=== PATIENT | male | born 1955 | race Two or more races ===

== ENCOUNTER 2017-09-05 10:02 | Emergency (ER) | payer OTHER ==
[~2017-09-05] VITALS: Ht 170.2 cm; Wt 85.7 kg
--- NOTE | 2017-09-05 10:05 | NUR ---
BBPA FROM [facility] NOT DONE C/O N/V X2 COFFEE GROUND EMESIS TODAY, ALSO C/O ABD PAIN GTUBE SITE. SENT BY DR MIKE CATHETER MALFUNCTION. , NAD NOTED, VSS, RESP EVEN AND UNLABORED, WAITING FOR MD GORDON.
[2017-09-05] MEDS ORDERED: ONDANSETRON HCL/PF 4 MG/2 ML VIAL ONE (10:24)
[2017-09-05] MEDS ORDERED: ONDANSETRON HCL/PF 4 MG/2 ML VIAL IVP ONE (10:30)
[2017-09-05 10:37] LABS: BASOPHILS # (AUTO) 0.1 /CMM (0.0-0.2); BASOPHILS % (AUTO) 0.8 % (0.0-2.0); EOSINOPHILS # (AUTO) 0.2 /CMM (0.0-0.7); EOSINOPHILS % (AUTO) 1.1 % (0.0-6.0); HEMATOCRIT 42 % (39-51); HEMOGLOBIN 13.4 g/dL (13.5-17.5); LYMPHOCYTES # (AUTO) 3.7 /CMM (0.8-4.8); LYMPHOCYTES % (AUTO) 25.7 % (20.0-44.0); MEAN CORPUSCULAR HEMOGLOBIN 26 PG (26.0-33.0); MEAN CORPUSCULAR HGB CONC 32 g/dl (31.0-36.0); MEAN CORPUSCULAR VOLUME 81 fL (80-96); MONOCYTES # (AUTO) 0.9 /CMM (0.1-1.30); MONOCYTES % (AUTO) 6.3 % (2.0-12.0); NEUTROPHILS # (AUTO) 9.3 /CMM (1.8-8.9); NEUTROPHILS % (AUTO) 66.1 % (43.0-81.0); PLATELET COUNT (AUTO) 425 /CMM (150-450); RDW COEFFICIENT OF VARIATION 17.2 (11.5-15.0); RED BLOOD CELL COUNT(AUTO) 5.18 MIL/uL (4.5-6.0); WHITE BLOOD COUNT (AUTO) 14.2 K/uL (4.3-11.0)
[2017-09-05 10:47] LABS: CALCIUM, SERUM 10.1 mg/dL (8.5-10.1); CREATININE 4.8 mg/dL (0.6-1.3); POTASSIUM 4.2 mmol/L (3.5-5.1)
[2017-09-05 10:57] LABS: ALBUMIN 3.4 g/dL (3.4-5.0); BILIRUBIN,DIRECT 0.1 mg/dL (0.0-0.2); BILIRUBIN,TOTAL 0.3 mg/dL (0.2-1.0); TOTAL PROTEIN, SERUM 9.4 g/dL (6.4-8.2)
--- NOTE | 2017-09-05 11:59 | NUR ---
PAGED [facility] --- PSYCHIATRIC MENTAL HEALTH NURSE IS DR GUNDERSON.
--- NOTE | 2017-09-05 12:18 | NUR ---
CALLED 'S OFFICE, [facility], PAGED.
--- NOTE | 2017-09-05 12:49 | NUR ---
CALLED [facility] FOR TRANSPORT BACK TO [facility], ETA 30 MIN, TRIP #[id number].
[2017-09-05 14:04] VITALS: BP 139/77
--- NOTE | 2017-09-05 14:06 | NUR ---
Patient discharged to SNF in stable condition. Written and verbal after care instructions given. Patient verbalizes understanding of instruction. IV removed. Catheter intact and site benign. Pressure and 4x4 applied to site. No bleeding noted.
== END 2017-09-05 14:08 | disposition home or self-care (01) ==
LOC: ER 10:04
DX: R11.2 Nausea with vomiting, unspecified (principal); E11.22 Type 2 diabetes mellitus with diabetic chronic kidney disease; I12.0 Hypertensive chronic kidney disease with stage 5 chronic kidney disease or end stage renal disease; N18.6 End stage renal disease; Z93.1 Gastrostomy status; Z99.2 Dependence on renal dialysis
CPT/HCPCS: 36415; 80048; 80076; 83690; 85025; 85240; 86850; 86880; 87081; 93005; 96374; 99285; A4606; J2405; Z7610

== ENCOUNTER 2017-12-24 13:53 | Emergency (ER) | payer OTHER ==
[~2017-12-24] VITALS: Ht 165.1 cm; Wt 74.8 kg
[2017-12-24] MEDS ORDERED: MORPHINE SULFATE INJ 2 MG/ML DISP.SYRIN IM ONE (14:30)
[2017-12-24] MEDS ORDERED: ONDANSETRON 4 MG TAB.RAPDIS SL ONE (14:30)
[2017-12-24] MEDS ORDERED: ONDANSETRON 4 MG TAB.RAPDIS ONE (14:35)
[2017-12-24] MEDS ORDERED: MORPHINE SULFATE INJ 4 MG/ML DISP.SYRIN ONE (14:35)
[2017-12-24] MEDS ORDERED: CARVEDILOL 6.25 MG TABLET ONE (18:22)
[2017-12-24] MEDS ORDERED: CARVEDILOL 6.25 MG TABLET PO ONE (18:30)
[2017-12-24 18:45] VITALS: BP 162/90
[2017-12-24 18:56] LABS: APPEARANCE,URINE Clear (CLEAR); BILIRUBIN,URINE Negative (NEGATIVE); BLOOD, URINE Trace-intact Ery/uL (NEGATIVE); COLOR,URINE Yellow (YELLOW); KETONES,URINE Negative (NEGATIVE); LEUKOCYTE ESTERASE ,URINE Trace (NEGATIVE); NITRITE, URINE Negative (NEGATIVE); PH,URINE 5.5 (5.0-8.0); PROTEIN,URINE >=300 mg/dl (NEGATIVE); UGLUCOSE Negative (NEGATIVE); UROBILINOGEN,URINE 0.2 EU/dL (0.2)
[2017-12-24 19:22] LABS: BACTERIA,URINE Few /HPF (None Seen); MUCUS,URINE Few /LPF (None Seen); RBC,URINE 0-2 /HPF (0-2); SQUAMOUS EPITHELIAL CELL,UR Rare /HPF (None Seen); URINE AMORPHOUS URATE Moderate /HPF (None Seen); WBC,URINE 21-50 /HPF (0-3)
== END 2017-12-24 18:47 | disposition home or self-care (01) ==
LOC: ER 13:54
DX: M54.41 Lumbago with sciatica, right side (principal); M54.42 Lumbago with sciatica, left side; E11.22 Type 2 diabetes mellitus with diabetic chronic kidney disease; I12.0 Hypertensive chronic kidney disease with stage 5 chronic kidney disease or end stage renal disease; N18.6 End stage renal disease; Z99.2 Dependence on renal dialysis; E78.5 Hyperlipidemia, unspecified; Z88.8 Allergy status to other drugs, medicaments and biological substances
CPT/HCPCS: 81001; 87086; 96372; 99284; A4606; J2270; Q0162; Z7610; 81000-TC

== ENCOUNTER 2018-02-01 09:40 | Emergency (ER) | payer MEDICAID, OTHER ==
[~2018-02-01] VITALS: Ht 170.2 cm; Wt 75.3 kg
[~2018-02-01 09:40] MED LIST: ACET650S26 PO; ASPI-1169 PO; ATOR40TA PO; BLOO-668 IN; CARV6.252 PO; DOCU-141 PO; EPOE1VIA6 SQ; FOLI0.8T23 PO; HYDR-552 PO; INSU100V27 SQ; INSU100V7 SQ; LACT10SO PO; MAG30ORA PO; NITR0.4T48 SL; OMEP40CA37 PO; POLY15DR40 EACHEYE; TRAM50TA2 PO
--- NOTE | 2018-02-01 09:45 | NUR ---
PT [facility] TO ER BED 03. PT STARTED VOMITING "COFFEE GROUND" 2 HOURS ON DIALYSIS. PT ALSO C/O LOWER BACK PAIN. CHRONIC. PLACED ON MONITOR. VSS. AWAITING MD GORDON.
--- NOTE | 2018-02-01 09:50 | NUR ---
DR ROWLAND AT BEDSIDE FOR EVAL.
[2018-02-01] MEDS ORDERED: ONDANSETRON HCL/PF 4 MG/2 ML VIAL ONE (09:58)
[2018-02-01] MEDS ORDERED: PANTOPRAZOLE 40 MG VIAL ONE (09:58)
[2018-02-01] MEDS ORDERED: MORPHINE SULFATE INJ 4 MG/ML DISP.SYRIN ONE (09:58)
[2018-02-01] MEDS ORDERED: PANTOPRAZOLE 40 MG VIAL IV ONE (10:00)
[2018-02-01] MEDS ORDERED: MORPHINE SULFATE INJ 2 MG/ML DISP.SYRIN IV ONE (10:00)
[2018-02-01] MEDS ORDERED: ONDANSETRON HCL/PF 4 MG/2 ML VIAL IVP ONE (10:00)
--- NOTE | 2018-02-01 10:00 | NUR ---
IV LINE STARTED. BLOOD DRAWN AND SENT TO LAB.
[2018-02-01] MEDS ORDERED: AMLO5TAB2 PO (10:02)
[2018-02-01] MEDS ORDERED: MORP10SO PO (10:02)
[2018-02-01] MEDS ORDERED: BENA20TA9 PO (10:02)
[2018-02-01] MEDS ORDERED: BISA-79 PO (10:02)
[2018-02-01] MEDS ORDERED: CLON0.1T PO (10:02)
[2018-02-01] MEDS ORDERED: BISA10SU8 RC (10:02)
[2018-02-01] MEDS ORDERED: IPRA3AMP23 IH (10:02)
[2018-02-01 10:04] LABS: BASOPHILS # (AUTO) 0.1 /CMM (0.0-0.2); LYMPHOCYTES # (AUTO) 1.9 /CMM (0.8-4.8); MONOCYTES # (AUTO) 0.9 /CMM (0.1-1.30)
[2018-02-01 10:06] LABS: BASOPHILS % (AUTO) 0.8 % (0.0-2.0); EOSINOPHILS % (AUTO) 2.2 % (0.0-6.0); HEMATOCRIT 44 % (39-51); HEMOGLOBIN 13.7 g/dL (13.5-17.5); LYMPHOCYTES % (AUTO) 14.6 % (20.0-44.0); MEAN CORPUSCULAR HEMOGLOBIN 22 PG (26.0-33.0); MEAN CORPUSCULAR HGB CONC 31 g/dl (31.0-36.0); MEAN CORPUSCULAR VOLUME 73 fL (80-96); MONOCYTES % (AUTO) 7.2 % (2.0-12.0); NEUTROPHILS # (AUTO) 9.7 /CMM (1.8-8.9); NEUTROPHILS % (AUTO) 75.2 % (43.0-81.0); PLATELET COUNT (AUTO) 636 /CMM (150-450); RDW COEFFICIENT OF VARIATION 21.5 (11.5-15.0); WHITE BLOOD COUNT (AUTO) 12.9 K/uL (4.3-11.0)
[2018-02-01 10:13] LABS: CALCIUM, SERUM 9.3 mg/dL (8.5-10.1); CREATININE 3.5 mg/dL (0.6-1.3); POTASSIUM 3.9 mmol/L (3.5-5.1)
[2018-02-01 10:19] LABS: BILIRUBIN,DIRECT 0.1 mg/dL (0.0-0.2); BILIRUBIN,TOTAL 0.4 mg/dL (0.2-1.0); TOTAL PROTEIN, SERUM 8.6 g/dL (6.4-8.2)
--- NOTE | 2018-02-01 10:47 | NUR ---
PATIENT WENT OUT FOR CT WITH BACK SEWER
--- NOTE | 2018-02-01 11:59 | NUR ---
CALLED [facility] UNDERGROUND MINE MACHINERY MECHANIC WAS PAGED.
--- NOTE | 2018-02-01 12:19 | NUR ---
CALLED [facility] FOR TRANSPORT ETA OF 1300 WAS GIVEN. TRIP#[id number]
--- NOTE | 2018-02-01 13:20 | NUR ---
IV removed. Catheter intact and site benign. Pressure and 4x4 applied to site. No bleeding noted.
--- NOTE | 2018-02-01 13:20 | NUR ---
PT PICKED UP BY [facility] STAFF. REPORT GIVEN BY NIESHA WHITFIELD.
[2018-02-01 13:36] VITALS: BP 130/71
== END 2018-02-01 13:37 | disposition home or self-care (01) ==
LOC: ER 09:43
DX: R11.2 Nausea with vomiting, unspecified (principal); I12.0 Hypertensive chronic kidney disease with stage 5 chronic kidney disease or end stage renal disease; E11.22 Type 2 diabetes mellitus with diabetic chronic kidney disease; N18.6 End stage renal disease; M54.9 Dorsalgia, unspecified; G89.29 Other chronic pain; Z99.2 Dependence on renal dialysis; Z79.4 Long term (current) use of insulin; Z79.82 Long term (current) use of aspirin; E78.5 Hyperlipidemia, unspecified; Z86.73 Personal history of transient ischemic attack (TIA), and cerebral infarction without residual deficits; Z88.8 Allergy status to other drugs, medicaments and biological substances
CPT/HCPCS: 36415; 71045; 74176; 80048; 80076; 83690; 85025; 85730; 93005; 96374; 96375; 99285; A4606; C9113; J2270; J2405; Z7610

== ENCOUNTER 2018-07-05 10:13 | Emergency (ER) | payer MEDICAID ==
[~2018-07-05] VITALS: Ht 170.2 cm; Wt 88.9 kg
[~2018-07-05 10:13] MED LIST changes: +AMLO5TAB9 PO; +BENA20TA9 PO; +BISA-79 PO; +BISA10SU8 RC; -CARV6.252 PO; +CLON0.1T PO; -DOCU-141 PO; -FOLI0.8T23 PO; +HYDR-4384 PO; -HYDR-552 PO; +IPRA3AMP23 IH; -LACT10SO PO; -MAG30ORA PO; +MORP10SO PO; -NITR0.4T48 SL; -OMEP40CA37 PO; -POLY15DR40 EACHEYE; -TRAM50TA2 PO
--- NOTE | 2018-07-05 10:13 | NUR ---
TIMBO FROM [facility] FOR R CHEST VICKIE CATHETER MALFUNCTION, DIALYZED FOR 1.5HRS OUT OF 2.5 HRS. TO ER BED 10, CHANGED TO GOWN, HOOKED TO MONITOR, AWAITING MD GORDON
[2018-07-05 10:54] LABS: BASOPHILS # (AUTO) 0.1 /CMM (0.0-0.2); BASOPHILS % (AUTO) 1.2 % (0.0-2.0); EOSINOPHILS % (AUTO) 3.7 % (0.0-6.0); HEMATOCRIT 45 % (39-51); HEMOGLOBIN 14.5 g/dL (13.5-17.5); LYMPHOCYTES % (AUTO) 31.6 % (20.0-44.0); MEAN CORPUSCULAR HGB CONC 32 g/dl (31.0-36.0); MEAN CORPUSCULAR VOLUME 84 fL (80-96); MONOCYTES % (AUTO) 10.6 % (2.0-12.0); NEUTROPHILS % (AUTO) 52.9 % (43.0-81.0); PLATELET COUNT (AUTO) 354 /CMM (150-450); RED BLOOD CELL COUNT(AUTO) 5.33 MIL/uL (4.5-6.0); WHITE BLOOD COUNT (AUTO) 9.5 K/uL (4.3-11.0)
[2018-07-05 11:00] LABS: CALCIUM, SERUM 8.6 mg/dL (8.5-10.1); CARBON DIOXIDE 25 mmol/L (21-32); CHLORIDE 105 mmol/L (98-107); CREATININE 2.6 mg/dL (0.6-1.3); GLUCOSE 101 mg/dL (74-106); POTASSIUM 4.9 mmol/L (3.5-5.1); SODIUM SERUM 139 mmol/L (136-145); UREA NITROGEN, BLOOD 70 mg/dL (7-18)
[2018-07-05] MEDS ORDERED: ALTEPLASE CATHFLO 2 MG/VIAL XX ONE (12:00)
--- NOTE | 2018-07-05 12:06 | NUR ---
PERFORMED ASEPTIC TECHNIQUE: FLUSHED 2 LUMENS OF R CHEST VICKIE CATHETER WITH 10ML OF NS EACH PORT. PATENT AND NO RESISTANCE NOTED, ER MD MADE AWARE. SITE IS INTACT AND NO S/Sx OF INFECTION NOTED.
--- NOTE | 2018-07-05 12:47 | NUR ---
PAGED DR. MIKE ITS NOW DR. WORTHY
[2018-07-05] MEDS ORDERED: HEPARIN SODIUM, PORCINE 5000 UNITS/1 ML VIAL IV ONE (13:00)
[2018-07-05] MEDS ORDERED: HEPARIN SODIUM, PORCINE 5000 UNITS/1 ML VIAL ONE (13:00)
--- NOTE | 2018-07-05 13:38 | NUR ---
ASPIRATED 1.6ML OF THE HEPARIN ON EACH LUMEN ON R CHEST VICKIE CATH.
--- NOTE | 2018-07-05 14:29 | NUR ---
PATIENT SENT HOME VIA AMBULANCE.
--- NOTE | 2018-07-05 14:29 | NUR ---
IV removed. Catheter intact and site benign. Pressure and 4x4 applied to site. No bleeding noted.Patient discharged to home in stable condition. Written and verbal after care instructions given. Patient verbalizes understanding of instruction.
[2018-07-05 14:30] VITALS: BP 159/91
== END 2018-07-05 14:31 | disposition home or self-care (01) ==
LOC: ER 10:15
DX: T82.41XA Breakdown (mechanical) of vascular dialysis catheter, initial encounter (principal); I12.0 Hypertensive chronic kidney disease with stage 5 chronic kidney disease or end stage renal disease; E11.22 Type 2 diabetes mellitus with diabetic chronic kidney disease; D63.1 Anemia in chronic kidney disease; N18.6 End stage renal disease; E78.5 Hyperlipidemia, unspecified; Z99.2 Dependence on renal dialysis; Z88.8 Allergy status to other drugs, medicaments and biological substances; Z86.73 Personal history of transient ischemic attack (TIA), and cerebral infarction without residual deficits; Z79.4 Long term (current) use of insulin; Z79.899 Other long term (current) drug therapy; Z79.82 Long term (current) use of aspirin
CPT/HCPCS: 36415; 71045; 80048; 84484; 85025; 85730; 93005; 96374; 99284; A4606; J1644; Z7610; J2997

== ENCOUNTER 2018-11-29 07:51 | Inpatient (IN) | payer MEDICAID ==
[~2018-11-29] VITALS: Ht 170.2 cm; Wt 95.3 kg
--- NOTE | 2018-11-29 07:51 | NUR ---
PT BIB [facility] FROM [facility]IS CENTER, SYNCOPAL EPISODE WHILE ON DIALYSIS, PT IS AAOX4, NOT IN RESPIRATORY DISTRESS, HOOKED TO MONITOR, V/S STABLE, KEPT RESTED AND COMFORTABLE, WILL CONTINUE TO MONITOR.
--- NOTE | 2018-11-29 08:00 | NUR ---
SEEN AND EXAMINED BY DR. FLORES.
--- NOTE | 2018-11-29 08:02 | NUR ---
PT IV LINE ESTABLISHED, BLOOD DRAWNED AND SENT TO LAB.
--- NOTE | 2018-11-29 08:08 | NUR ---
POTATO GRADER AT BEDSIDE FOR XRAY.
[2018-11-29 08:17] LABS: BASOPHILS # (AUTO) 0.1 /CMM (0.0-0.2); BASOPHILS % (AUTO) 0.5 % (0.0-2.0); EOSINOPHILS % (AUTO) 4.8 % (0.0-6.0); HEMATOCRIT 40 % (39-51); HEMOGLOBIN 12.5 g/dL (13.5-17.5); LYMPHOCYTES # (AUTO) 4.2 /CMM (0.8-4.8); LYMPHOCYTES % (AUTO) 33.9 % (20.0-44.0); MEAN CORPUSCULAR HGB CONC 31 g/dl (31.0-36.0); MEAN CORPUSCULAR VOLUME 85 fL (80-96); MONOCYTES # (AUTO) 1.2 /CMM (0.1-1.30); MONOCYTES % (AUTO) 9.4 % (2.0-12.0); NEUTROPHILS # (AUTO) 6.3 /CMM (1.8-8.9); NEUTROPHILS % (AUTO) 51.4 % (43.0-81.0); PLATELET COUNT (AUTO) 378 /CMM (150-450); RED BLOOD CELL COUNT(AUTO) 4.73 MIL/uL (4.5-6.0); WHITE BLOOD COUNT (AUTO) 12.3 K/uL (4.3-11.0)
[2018-11-29 08:19] LABS: CALCIUM, SERUM 7.7 mg/dL (8.5-10.1); CARBON DIOXIDE 22 mmol/L (21-32); CHLORIDE 97 mmol/L (98-107); CREATININE 3.9 mg/dL (0.6-1.3); GLUCOSE 127 mg/dL (74-106); SODIUM SERUM 131 mmol/L (136-145); UREA NITROGEN, BLOOD 52 mg/dL (7-18)
[2018-11-29 08:25] LABS: ALANINE AMINOTRANSFERASE 29 U/L (12-78); ALBUMIN 3.3 g/dL (3.4-5.0); ALKALINE PHOSPHATASE 82 U/L (46-116); ASPARTATE AMINOTRANSFERASE 18 U/L (15-37); BILIRUBIN,TOTAL 0.2 mg/dL (0.2-1.0); TOTAL PROTEIN, SERUM 8.2 g/dL (6.4-8.2)
[2018-11-29] MEDS ORDERED: ONDANSETRON HCL/PF 4 MG/2 ML VIAL ONE (08:34)
--- NOTE | 2018-11-29 08:40 | NUR ---
PT IS BACK FROM THE [facility]SCAN, PT IS VOMITING MD AWARE.
--- NOTE | 2018-11-29 08:47 | NUR ---
BED 322-1
--- NOTE | 2018-11-29 08:56 | NUR ---
REPORT GIVEN TO NAHID ALCAZAR FOR AM[facility].
[2018-11-29] MEDS ORDERED: ONDANSETRON HCL/PF 4 MG/2 ML VIAL IV ONE (09:00)
--- NOTE | 2018-11-29 09:12 | NUR ---
DR. LOMELI AT BEDSIDE FOR EVAL.
--- NOTE | 2018-11-29 09:14 | NUR ---
DR KIRK PAGED AGAIN
--- NOTE | 2018-11-29 10:04 | NUR ---
DR HERRING PAGED AGAIN THRU OFFICE
[2018-11-29 10:22] LABS: THYROID STIMULATING HORMONE 2.493 uIU/mL (0.358-3.74)
[2018-11-29 11:30] VITALS: BP 153/73
--- NOTE | 2018-11-29 11:30 | NUR ---
SALVAGE ENGINEERTAG STRINGER NOTES Received Patient via gurney. Patient in bed comfortable and resting. A/O x 4, Chilean speaking with few Divehi. VS stable with no acute distress. Breathing even and unlabored on room air with no respiratory distress, SPO2 97%. Denies pain. Denies nausea. Skin assessment pictures done and placed in chart. Telemonitor in place and operational reading, SR, HR-75. 18g PIV on LAC, clean, dry, intact, and flushing well. Safety precautions in place. Bed locked and set to lowest position with side rails x 2 up. All needs rendered at this time. Will continue to monitor.
[2018-11-29] MEDS ORDERED: BISACODYL SUPP (10 MG) 10 MG/SUPP.RECT SUPP.RECT RC PRN (15:00)
[2018-11-29] MEDS ORDERED: CLONIDINE HCL 0.1 MG TABLET PO PRN (15:00)
[2018-11-29] MEDS ORDERED: IPRATROPIUM NEB FS 0.5 MG/2.5 ML AMPUL.NEB NEB PRN (15:00)
[2018-11-29 15:55] VITALS: BP 143/73
[2018-11-29] MEDS: ACETAMINOPHEN 325 MG TABLET PO PRN (16:39)
[2018-11-29] MEDS: BLOOD SUGAR DIAGNOSTIC 1 EACH STRIP IN SCH ×2 (17:44→22:53)
--- NOTE | 2018-11-29 19:10 | NUR ---
SHIP SELF DEFENSE SYSTEM MK1 OPERATOR CLOSING NOTES Patient asleep and resting in bed. A/O x 4, Belarusian speaking with few Tamazight. VS stable with no acute distress. Breathing even and unlabored on room air with no respiratory distress. No signs and symptoms of pain. Telemonitor in place and operational reading, SR, HR-80s. 18g PIV on LAC, clean, dry, intact, and flushing well. Safety precautions in place. Bed locked and set to lowest position with side rails x 2 up. All needs rendered at this time. Will endorse plan of care to oncoming shift.
--- NOTE | 2018-11-29 19:30 | NUR ---
CHANGE OF SHIFT REPORT Received patient in bed, awake, A/O x 4 Sri Lankan speaking, understand and speak some Irish. Isidro Leno at bedside, assist with translation. Patient is scheduled for Dialysis tomorrow, patent consented procedure, consent signed and place in the chart. Right upper chest HD cath dressing C/D/I denies pain, no tyron nausea, no vomiting. Instruction to use call light for assistance, verbalized understanding.
[2018-11-29 20:00] VITALS: BP 128/69
[2018-11-29 22:00] VITALS: BP 128/69
[2018-11-29] MEDS: ATORVASTATIN 40 MG TABLET PO SCH (22:51)
[2018-11-29] MEDS: INSULIN GLARGINE, 100 UNIT/ML CARTRIDGE SQ SCH (22:56)
[2018-11-30] VITALS: BP 144/73
[2018-11-30] MEDS: ACETAMINOPHEN 325 MG TABLET PO PRN ×2 (03:16→22:31)
--- NOTE | 2018-11-30 03:18 | NUR ---
HEADACHE Patient ambulates to the bathroom, did not use call light for assistance. RN reports patient in the bathroom c/o dizziness after getting up from toilet seat. Assisted patient patient back to bed, made comfortable. Appears weak, c/o headache. BP 145/64. Reminders to use call light for assistance, verbalized understanding. Maintained safety.
[2018-11-30 04:00] VITALS: BP 125/69
[2018-11-30 04:05] VITALS: BP 125/69
[2018-11-30] MEDS: BLOOD SUGAR DIAGNOSTIC 1 EACH STRIP IN SCH ×4 (06:00→22:11)
--- NOTE | 2018-11-30 06:04 | NUR ---
END OF SHIFT REPORT Patient in bed, stable oxygen saturation on RA. Sinus rhythm with BBB in the Tele monitor, denies chest pain. Ambulates to the bathroom with FWW, standby assist. Given PRN Tylenol for headache with relief, denies nausea no vomiting. Slept well. FSBS 92 mg/dl with no ISS. Dialysis treatment today as scheduled, patient consented procedure. RFA lesion, no fluid discharge, for wound consult. Will endorse to oncoming RN for continuity of care.
[2018-11-30 07:36] LABS: BASOPHILS # (AUTO) 0.1 /CMM (0.0-0.2); BASOPHILS % (AUTO) 0.6 % (0.0-2.0); EOSINOPHILS % (AUTO) 1.3 % (0.0-6.0); HEMATOCRIT 37 % (39-51); HEMOGLOBIN 11.8 g/dL (13.5-17.5); LYMPHOCYTES # (AUTO) 2.1 /CMM (0.8-4.8); MEAN CORPUSCULAR HGB CONC 32 g/dl (31.0-36.0); MEAN CORPUSCULAR VOLUME 83 fL (80-96); MONOCYTES # (AUTO) 1.6 /CMM (0.1-1.30); MONOCYTES % (AUTO) 9.9 % (2.0-12.0); NEUTROPHILS # (AUTO) 11.8 /CMM (1.8-8.9); NEUTROPHILS % (AUTO) 75.2 % (43.0-81.0); PLATELET COUNT (AUTO) 354 /CMM (150-450); RED BLOOD CELL COUNT(AUTO) 4.46 MIL/uL (4.5-6.0); WHITE BLOOD COUNT (AUTO) 15.7 K/uL (4.3-11.0)
--- NOTE | 2018-11-30 07:39 | NUR ---
SENIOR FOREMAN OPENING NOTES Received Patient awake and resting in bed. Dialysis nurse at bedside. A/O x 4. VS stable with no acute distress. Breathing even and unlabored on room air with no respiratory distress. Denies pain. Telemonitor in place and operational reading, SR with BVB, HR-80s. 18g PIV on LAC, clean, dry, intact, and flushing well. Safety precautions in place. Bed locked and set to lowest position with side rails x 2 up. All needs rendered at this time. Will continue to monitor.
[2018-11-30 08:00] VITALS: BP 103/59
[2018-11-30 08:03] LABS: ALANINE AMINOTRANSFERASE 24 U/L (12-78); ALKALINE PHOSPHATASE 81 U/L (46-116); ASPARTATE AMINOTRANSFERASE 15 U/L (15-37); BILIRUBIN,TOTAL 0.2 mg/dL (0.2-1.0); CALCIUM, SERUM 7.6 mg/dL (8.5-10.1); CARBON DIOXIDE 23 mmol/L (21-32); CHLORIDE 101 mmol/L (98-107); CREATININE 4.3 mg/dL (0.6-1.3); GLUCOSE 89 mg/dL (74-106); MAGNESIUM 2.2 mg/dL (1.8-2.4); PHOSPHORUS 4.4 mg/dL (2.5-4.9); SODIUM SERUM 135 mmol/L (136-145); TOTAL PROTEIN, SERUM 7.7 g/dL (6.4-8.2); UREA NITROGEN, BLOOD 51 mg/dL (7-18)
[2018-11-30 08:21] LABS: POTASSIUM 7.1 mmol/L (3.5-5.1)
[2018-11-30] MEDS ORDERED: LEVOFLOXACIN 500 MG /D5W 100ML 500 MG in PREMIX 1 EA IV SCH (08:30)
[2018-11-30] MEDS: AMLODIPINE BESYLATE 5 MG TABLET PO SCH (10:00)
[2018-11-30] MEDS: BISACODYL (5 MG) 5 MG TABLET.DR PO SCH (10:00)
[2018-11-30] MEDS: BENAZEPRIL HCL 20 MG TABLET PO SCH (10:00)
[2018-11-30] MEDS: ASPIRIN 81 MG TAB.CHEW PO SCH (10:00)
[2018-11-30 16:19] VITALS: BP 137/75
--- NOTE | 2018-11-30 18:56 | NUR ---
PRECISION LENS GENERATOR CLOSING NOTES Patient sitting on chair watching TV. A/O x 4. VS stable with no acute distress. Breathing even and unlabored on room air with no respiratory distress. Denies pain. Telemonitor in place and operational reading, SR with BBB, HR-83. 18g PIV on LAC, clean, dry, intact, and flushing well. Safety precautions in place. Bed locked and set to lowest position with side rails x 2 up. All needs rendered at this time. Will endorse plan of care to oncoming shift.
--- NOTE | 2018-11-30 19:15 | NUR ---
MANAGER OPERATIONAL NOTES RECEIVED PT IN BED AWAKE AND ABLE TO MAKE NEEDS KNOWN. PT A/O X4. BREATHING EVEN AND UNLABORED WITH NO S/S OF ACUTE DISTRESS OR SOB NOTED. PT DENIES PAIN AT THIS TIME. PT ON TELE MONITORING WITH SR 76. PT WITH LAC #18G PATENT AND INTACT. SAFETY MEASURES IN PLACE WITH BED IN LOWEST LOCKED POSITION WITH SIDE RAILS UP X2. CALL LIGHT WITHIN REACH. WILL CONTINUE TO MONITOR.
[2018-11-30 20:00] VITALS: BP 143/82
[2018-11-30] MEDS: INSULIN GLARGINE, 100 UNIT/ML CARTRIDGE SQ SCH (22:00)
[2018-11-30] MEDS: ATORVASTATIN 40 MG TABLET PO SCH (22:14)
[2018-12-01] VITALS: BP 149/77
[2018-12-01 04:00] VITALS: BP 135/69
[2018-12-01 05:06] VITALS: BP_SYST 118; BP_SYST 135; BP_SYST 137; BP_DIAS 59; BP_DIAS 69; BP_DIAS 73
--- NOTE | 2018-12-01 07:04 | NUR ---
PULPWOOD CUTTER NOTES PT IN BED AWAKE AND ABLE TO MAKE NEEDS KNOWN. PT A/O X4. BREATHING EVEN AND UNLABORED WITH NO S/S OF ACUTE DISTRESS OR SOB NOTED THROUGHOUT SHIFT. PT DENIES PAIN AT THIS TIME. PT ON TELE MONITORING WITH SR 85. PT WITH LAC #18G PATENT AND INTACT AND SL. PT WITH RUC CATH. SAFETY MEASURES IN PLACE WITH BED IN LOWEST LOCKED POSITION WITH SIDE RAILS UP X2. CALL LIGHT WITHIN REACH. WILL ENDORSE TO ONCOMING NURSE FOR [facility].
[2018-12-01 07:20] LABS: BASOPHILS # (AUTO) 0.1 /CMM (0.0-0.2); BASOPHILS % (AUTO) 0.9 % (0.0-2.0); EOSINOPHILS % (AUTO) 4.1 % (0.0-6.0); HEMATOCRIT 39 % (39-51); HEMOGLOBIN 12.4 g/dL (13.5-17.5); LYMPHOCYTES # (AUTO) 2.2 /CMM (0.8-4.8); LYMPHOCYTES % (AUTO) 20.9 % (20.0-44.0); MEAN CORPUSCULAR HGB CONC 32 g/dl (31.0-36.0); MEAN CORPUSCULAR VOLUME 84 fL (80-96); MONOCYTES # (AUTO) 1.3 /CMM (0.1-1.30); MONOCYTES % (AUTO) 11.8 % (2.0-12.0); NEUTROPHILS # (AUTO) 6.7 /CMM (1.8-8.9); NEUTROPHILS % (AUTO) 62.3 % (43.0-81.0); PLATELET COUNT (AUTO) 338 /CMM (150-450); RED BLOOD CELL COUNT(AUTO) 4.61 MIL/uL (4.5-6.0); WHITE BLOOD COUNT (AUTO) 10.7 K/uL (4.3-11.0)
--- NOTE | 2018-12-01 07:30 | NUR ---
RN MS OPENING NOTES Patient remains on room air, no sob noted. Patient shows no s/s of pain. Patient denies pain. Patient remains a/o x4. Bed at the lowest setting, call light within reach.
[2018-12-01] MEDS: BLOOD SUGAR DIAGNOSTIC 1 EACH STRIP IN SCH (07:38)
[2018-12-01 07:47] LABS: ALBUMIN 3.1 g/dL (3.4-5.0); BILIRUBIN,TOTAL 0.2 mg/dL (0.2-1.0); CALCIUM, SERUM 8.1 mg/dL (8.5-10.1); CREATININE 3.6 mg/dL (0.6-1.3); MAGNESIUM 2.1 mg/dL (1.8-2.4); PHOSPHORUS 4.6 mg/dL (2.5-4.9); POTASSIUM 5.1 mmol/L (3.5-5.1)
[2018-12-01 08:00] VITALS: BP 148/69
[2018-12-01] MEDS: ASPIRIN 81 MG TAB.CHEW PO SCH (08:43)
[2018-12-01 08:44] VITALS: BP 148/69
[2018-12-01] MEDS: BISACODYL (5 MG) 5 MG TABLET.DR PO SCH (08:44)
[2018-12-01] MEDS: BENAZEPRIL HCL 20 MG TABLET PO SCH (08:44)
[2018-12-01] MEDS: AMLODIPINE BESYLATE 5 MG TABLET PO SCH (08:44)
[2018-12-01] MEDS ORDERED: LEVO500T90 PO (09:13)
--- NOTE | 2018-12-01 11:39 | NUR ---
RN MS DISCHARGE NOTES Patient discharged at this time, no sob noted, vital signs stable, patient sent home with a walker, patient knows how to use it, he went over it with PT. IV line removed, patient has all the necessary discharge papers, patients right arm taken a photo of and is on file. Patient has all his valuables with him as well. Patient taken home in a private car, with his daughter.
[2018-12-02] MEDS ORDERED: LEVOFLOXACIN 250 MG /D5W 50 ML 250 MG in PREMIX 1 EA IV SCH (09:00)
== END 2018-12-01 11:50 | disposition home or self-care (01) | DRG 204 ==
LOC: ER 07:55 → TELE 08:54 → MED 12-01 09:17
PROVIDERS: ADMIT Student in an Organized Health Care Education/Training Program; ATTEND Student in an Organized Health Care Education/Training Program
PROC: 5A1D70Z Performance of Urinary Filtration, Intermittent, Less than 6 Hours Per Day (ICD-10-PCS; principal; 2018-11-30)
DX: I95.1 Orthostatic hypotension (principal); I13.2 Hypertensive heart and chronic kidney disease with heart failure and with stage 5 chronic kidney disease, or end stage renal disease; E11.22 Type 2 diabetes mellitus with diabetic chronic kidney disease; N18.6 End stage renal disease; E44.1 Mild protein-calorie malnutrition; E87.1 Hypo-osmolality and hyponatremia; D63.1 Anemia in chronic kidney disease; E78.5 Hyperlipidemia, unspecified; D72.829 Elevated white blood cell count, unspecified; Z86.73 Personal history of transient ischemic attack (TIA), and cerebral infarction without residual deficits; Z99.2 Dependence on renal dialysis; Z68.32 Body mass index [BMI] 32.0-32.9, adult; E87.5 Hyperkalemia; Z79.4 Long term (current) use of insulin; I50.32 Chronic diastolic (congestive) heart failure; N39.0 Urinary tract infection, site not specified
CPT/HCPCS: 36415; 70450-TC; 71045-TC; 80048-TC; 80053-TC; 80061-TC; 80076-TC; 82962-TC; 83735-TC; 84100-TC; 84439-TC; 84443-TC; 84484-TC; 85025-TC; 85730-TC; 86706; 87040-TC; 87081-TC; 87186-TC; 87340; 90935-TC; 93307-TC; 97116-TC; 97530-TC; A4216; G0378; J1815; J1956; J2405; J7050

== ENCOUNTER 2020-02-19 23:50 | Inpatient (IN) | payer MEDICARE, OTHER ==
[~2020-02-19] VITALS: Ht 170.2 cm; Wt 102.1 kg
[~2020-02-19 23:50] MED LIST changes: +BISA10SU11 RC; -BISA10SU8 RC
--- NOTE | 2020-02-20 00:04 | NUR ---
PT AAOX4. USES WHEELCHAIR. PT BIBSON FROM HOME. PER SON,DIALYSIS CATHETER (R UPPER CHEST) FELL OUT WHILE THE PT WAS ASLEEP. PT PALCED IN BED 9 ON MONITOR AND PULSE OX. SHIRLEY. AT BEDSIDE FOR EVAL.
--- NOTE | 2020-02-20 00:12 | NUR ---
REHABILITATION CENTER MANAGER AT BEDSIDE, LINE INITIATED LAC 20G, LABS SENT.
--- NOTE | 2020-02-20 00:25 | NUR ---
FATEMEH SENT TO LAB
[2020-02-20 00:28] LABS: BASOPHILS # (AUTO) 0.1 /CMM (0.0-0.2); BASOPHILS % (AUTO) 0.6 % (0.0-2.0); EOSINOPHILS % (AUTO) 3.2 % (0.0-6.0); HEMATOCRIT 34 % (39-51); LYMPHOCYTES # (AUTO) 1.6 /CMM (0.8-4.8); LYMPHOCYTES % (AUTO) 17.8 % (20.0-44.0); MEAN CORPUSCULAR HGB CONC 32 g/dl (31.0-36.0); MEAN CORPUSCULAR VOLUME 89 fL (80-96); MONOCYTES # (AUTO) 0.8 /CMM (0.1-1.30); MONOCYTES % (AUTO) 9.3 % (2.0-12.0); NEUTROPHILS # (AUTO) 6.2 /CMM (1.8-8.9); NEUTROPHILS % (AUTO) 69.1 % (43.0-81.0); PLATELET COUNT (AUTO) 358 /CMM (150-450); RED BLOOD CELL COUNT(AUTO) 3.85 MIL/uL (4.5-6.0)
[2020-02-20 00:43] LABS: ALBUMIN 3.9 g/dL (3.4-5.0); BILIRUBIN,DIRECT 0.1 mg/dL (0.0-0.2); BILIRUBIN,TOTAL 0.2 mg/dL (0.2-1.0); CALCIUM, SERUM 7.5 mg/dL (8.5-10.1); CREATININE 5.6 mg/dL (0.6-1.3); POTASSIUM 5.6 mmol/L (3.5-5.1); TOTAL PROTEIN, SERUM 8.1 g/dL (6.4-8.2)
--- NOTE | 2020-02-20 01:06 | NUR ---
DR ERIC GOTTI PER DR NORRIS
--- NOTE | 2020-02-20 01:26 | NUR ---
SPOKE TO SON, EXPLAINED PLAN OF CARE.
--- NOTE | 2020-02-20 01:32 | NUR ---
REPORT GIVEN TO BRIGHT WHITFIELD FOR AMARIS
[2020-02-20 01:55] VITALS: BP 119/61
--- NOTE | 2020-02-20 01:55 | NUR ---
MS BUNDLE SORTER NOTES PATIENT TRANSFERRED FROM ER IN STABLE CONDITION. A/OX4. PRIMARY LANGUAGE DANISH HOWEVER IS ABLE TO SPEAK/UNDERSTAND A LITTLE BARBADIAN. STABLE ON RA. IV PRESENT ON LEFT AC, SIZE 20, INTACT & PATENT, HEP LOCKED. HD CATH SITE ON RUQ COVERED WITH DRESSING; PER PATIENT, HD CATH FELL OUT WHILE SLEEPING; NO BLEEDING NOTED; PICTURES TAKEN AND PLACED IN CHART. PATIENT CAME WITH WHEELCHAIR FROM HOME; ABLE TO AMBULATE TO BATHROOM WITH STANDBY ASSIST. BELONGINGS REVIEWED WITH PATIENT; WALLET PRESENT WITH $80 FRIAS; PATIENT PREFERS TO KEEP AT THE BEDSIDE. SAFETY MEASURES IN PLACE AND PATIENT'S NEEDS MET. BED LOCKED, HOB ELEVATED, SIDE RAILS X2, CALL LIGHT WITHIN REACH. CURRENTLY AWAITING FOR ADMISSION ORDERS.
[2020-02-20 03:00] VITALS: BP 119/61
--- NOTE | 2020-02-20 03:07 | NUR ---
MS RN NOTES PAGED EPIC FOR DISTRIBUTION TECHNICIAN KEATON HUBBARD. AWAITING ADMISSION ORDERS.
--- NOTE | 2020-02-20 03:50 | NUR ---
MS RN NOTES PAGED EPIC FOR ADMISSION ORDERS
--- NOTE | 2020-02-20 03:59 | NUR ---
MS RN NOTES SPOKE TO SUPERVISOR CORE DRILLING MD, KEATON FUENTES, VIA TELEPHONE. MADE AWARE OF ADMISSION
[2020-02-20] MEDS ORDERED: ZOLPIDEM TARTRATE 5 MG TABLET PO PRN (05:00)
[2020-02-20] MEDS ORDERED: ACETAMINOPHEN 325 MG TABLET PO PRN (05:00)
[2020-02-20] MEDS ORDERED: ONDANSETRON HCL/PF 4 MG/2 ML VIAL IVP PRN (05:00)
[2020-02-20] MEDS ORDERED: Z GUARD REMEDY 2 OZ OINT TP PRN (05:00)
--- NOTE | 2020-02-20 07:20 | NUR ---
MS RN CLOSING NOTES PATIENT SLEEPING IN BED. A/OX4. STABLE ON RA. NO S/S OF SOB OR C/O PAIN AT THIS TIME. IV ON LEFT AC SIZE 20 REMAINS INTACT & PATENT, HEP LOCKED. SAFETY MEASURES IN PLACE AND PATIENT'S NEEDS MET. BED LOCKED, SIDE RAILS X2, CALL LIGHT WITHIN REACH. WILL ENDORSE TO DAY SHIFT RN PLAN OF CARE.
--- NOTE | 2020-02-20 07:34 | NUR ---
MS RN OPENING NOTES PATIENT RECEIVED AWAKE IN BED IN NO ACUTE SIGNS OF DISTRESS. A/O X 4. ABLE TO MAKE NEEDS KNOWN, DENIES PAIN OR ANY DISCOMFORTS AT THIS TIME. ON ROOM AIR, RESPIRATIONS ARE EVEN AND UNLABORED. DRESSING ON HD CATH SITE ON UPPER RIGHT CHEST WITH DRESSING IN PLACE WITH NO BLEEDING NOTED. IV SL ON LAC G#20 INTACT AND PATENT, IVF RUNNING NS AT 40 ML/HR, NO S/S OF INFILTRATIONS AT SITE NOTED. SAFETY MEASURES IN PLACE: HOB ELEVATED. BED IS LOW POSITION AND LOCKED WITH SIDE RAILS UP X 2. CALL LIGHT WITHIN REACH. WILL CONTINUE TO MONITOR PT ACCORDINGLY.
[2020-02-20 08:00] VITALS: BP_SYST 150; BP_DIAS 72; BP_DIAS 83
[2020-02-20] MEDS ORDERED: BISACODYL SUPP (10 MG) 10 MG/SUPP.RECT SUPP.RECT RC PRN (10:30)
[2020-02-20] MEDS ORDERED: BISACODYL (5 MG) 5 MG TABLET.DR PO PRN (10:30)
[2020-02-20] MEDS ORDERED: SODIUM POLYSTYRENE SULFONATE 15 G/60 ML BOTTLE PO ONE (10:30)
[2020-02-20] MEDS ORDERED: DEXTROSE 50%-WATER 50 ML DISP.SYRIN IV PRN (10:30)
[2020-02-20] MEDS: AMLODIPINE BESYLATE 5 MG TABLET PO SCH (11:27)
[2020-02-20] MEDS: BENAZEPRIL HCL 20 MG TABLET PO SCH (11:27)
[2020-02-20] MEDS: BLOOD SUGAR DIAGNOSTIC 1 EACH STRIP IN SCH ×3 (12:19→21:49)
[2020-02-20 16:00] VITALS: BP 158/80
[2020-02-20] MEDS: INSULIN REGULAR, HUMAN 100 UNIT/ML 3 ML VIAL SQ PRN ×2 (17:20→21:49)
--- NOTE | 2020-02-20 18:44 | NUR ---
MS RN CLOSING NOTES PATIENT IS RESTING IN BED, AWAKE AND VERBALLY RESPONSIVE. NO SIGNS OF DISTRESS. A/O X 4. ABLE TO MAKE NEEDS KNOWN,. ON ROOM AIR, RESPIRATIONS ARE EVEN AND UNLABORED. DRESSING ON HD CATH SITE ON UPPER RIGHT CHEST STILL INTACT AND DRY, NO BLEEDING NOTED. PERIPHERAL LINE ON LAC G#20 INTACT AND PATENT, IVF RUNNING NS AT 40 ML/HR, NO S/S OF INFILTRATIONS AT SITE NOTED. ALL NEEDS AND CARE ATTENDED WELL. SAFETY MEASURES IN PLACE: HOB ELEVATED. BED IS LOW POSITION AND LOCKED WITH SIDE RAILS UP X 2. CALL LIGHT WITHIN REACH. WILL ENDORSE TO CAR COUPLER FOR AMARIS. Addendum: 02/20/20 at 1850 by PRICILA SLOAN RN CORRECTION: PT NOT ON ANY IV FLUIDS
[2020-02-20 18:56] LABS: CALCIUM, SERUM 7.5 mg/dL (8.5-10.1)
--- NOTE | 2020-02-20 19:11 | NUR ---
ADDITIONAL NOTES BLOODWORKS DONE AT 1800, RESULTS STILL PENDING, ENDORSED TO NIGHT NURSE INGE TO FOLLOW UP RESULTS.
--- NOTE | 2020-02-20 19:40 | NUR ---
TELE/RN OPENING NOTES: RECEIVED PT. AWAKE IN BED IN NO ACUTE SIGNS OF DISTRESS. A/O X 4. TAIWANESE SPEAKING ONLY. ABLE TO MAKE NEEDS KNOWN, DENIES PAIN OR ANY DISCOMFORTS AT THIS TIME. ON ROOM AIR, RESPIRATIONS ARE EVEN AND UNLABORED. DRESSING ON HD CATH SITE ON UPPER RIGHT CHEST WITH DRESSING IN PLACE WITH NO BLEEDING NOTED. IV SL ON LAC #20G INTACT AND PATENT. SAFETY MEASURES IN PLACE: HOB ELEVATED. DR. HERRING IN THE UNIT, REMINDED ME ABOUT THE EKG TO LET RT KNOW TO DO IT STA. ORDER CHANGED TO STAT. RT SAID THEY WILL COME UP. SAFETY MEASURES IN PLACE. BED IS LOW, LOCKED POSITION WITH SIDE RAILS UP X 2. CALL LIGHT WITHIN REACH. WILL CONTINUE TO MONITOR PT ACCORDINGLY.
[2020-02-20 20:00] VITALS: BP 139/64
--- NOTE | 2020-02-20 20:19 | NUR ---
TELE/RN NOTES: DR. OSWALDO HERRING INFORMED OF THE STAT EKG RESULTS. SHOWS NORMAL SINUS RHYTHM. WILL CONTINUE TO MONITOR. PT IS STABLE FOR NOW.
[2020-02-20] MEDS: ATORVASTATIN 10 MG TABLET PO SCH (21:46)
--- NOTE | 2020-02-20 22:18 | NUR ---
TELE/RN NOTES: ACCU CHECK FOR HS IS 94. NO INSULIN ADMINISTERED PER SLIDING SCALE. PT STABLE AT THIS TIME. WILL CONTINUE TO MONITOR ACCORDINGLY.
[2020-02-21 04:00] VITALS: BP 140/65
[2020-02-21 04:41] VITALS: BP 140/65
[2020-02-21 06:35] LABS: BASOPHILS # (AUTO) 0.1 /CMM (0.0-0.2); BASOPHILS % (AUTO) 1.4 % (0.0-2.0); EOSINOPHILS % (AUTO) 2.6 % (0.0-6.0); HEMATOCRIT 36 % (39-51); HEMOGLOBIN 11.5 g/dL (13.5-17.5); LYMPHOCYTES # (AUTO) 1.4 /CMM (0.8-4.8); LYMPHOCYTES % (AUTO) 15.2 % (20.0-44.0); MEAN CORPUSCULAR HGB CONC 32 g/dl (31.0-36.0); MEAN CORPUSCULAR VOLUME 90 fL (80-96); MONOCYTES # (AUTO) 0.7 /CMM (0.1-1.30); MONOCYTES % (AUTO) 7.5 % (2.0-12.0); NEUTROPHILS # (AUTO) 6.6 /CMM (1.8-8.9); NEUTROPHILS % (AUTO) 73.3 % (43.0-81.0); PLATELET COUNT (AUTO) 390 /CMM (150-450); RED BLOOD CELL COUNT(AUTO) 4.05 MIL/uL (4.5-6.0); WHITE BLOOD COUNT (AUTO) 9.1 K/uL (4.3-11.0)
[2020-02-21] MEDS: BLOOD SUGAR DIAGNOSTIC 1 EACH STRIP IN SCH ×4 (06:37→21:42)
[2020-02-21] MEDS: INSULIN REGULAR, HUMAN 100 UNIT/ML 3 ML VIAL SQ PRN ×2 (06:38→17:58)
[2020-02-21 06:47] LABS: ALBUMIN 3.8 g/dL (3.4-5.0); BILIRUBIN,TOTAL 0.3 mg/dL (0.2-1.0); CALCIUM, SERUM 7.6 mg/dL (8.5-10.1); CREATININE 4.6 mg/dL (0.6-1.3); PHOSPHORUS 4.2 mg/dL (2.5-4.9); POTASSIUM 5.2 mmol/L (3.5-5.1); TOTAL PROTEIN, SERUM 8.1 g/dL (6.4-8.2)
[2020-02-21 06:51] LABS: THYROID STIMULATING HORMONE 1.227 uIU/mL (0.358-3.74)
--- NOTE | 2020-02-21 07:50 | NUR ---
TELE/RN CLOSING NOTES: PT. REMAINS AWAKE IN BED IN NO ACUTE SIGNS OF DISTRESS. A/O X 4. PRYDEINIG SPEAKING ONLY. ABLE TO MAKE NEEDS KNOWN, DENIES PAIN OR ANY DISCOMFORTS AT THIS TIME. ON ROOM AIR, RESPIRATIONS ARE EVEN AND UNLABORED. DRESSING ON HD CATH SITE ON UPPER RIGHT CHEST C.D.I. IV SL ON LAC #20G INTACT AND PATENT. SAFETY MEASURES IN PLACE: HOB ELEVATED. TELE READING OF SR 98. SAFETY MEASURES KEPT IN PLACE. BED IS LOW, LOCKED POSITION WITH SIDE RAILS UP X 2. CALL LIGHT WITHIN REACH. WILL ENDORSE TO DAY SHIFT FOR AMARIS.
--- NOTE | 2020-02-21 08:00 | NUR ---
TRADITIONAL MAORI HEALTH PRACTITIONER OPENING NOTES Received Patient resting in bed. A/O x 4, Icelandic speaking. VS stable with no acute distress. Breathing even and unlabored on room air with no respiratory distress. Denies pain. No signs and symptoms of pain. Telemonitor in place and patent reading Sinus Tach with HR-104. 20g PIV on LAC intact, patent and flushing well. Safety precautions in place. Bed locked and set to lowest position with side rails x 2 up. All needs rendered at this time. Call light within reach. Will continue to monitor.
[2020-02-21] MEDS: BENAZEPRIL HCL 20 MG TABLET PO SCH (08:45)
[2020-02-21] MEDS: AMLODIPINE BESYLATE 5 MG TABLET PO SCH (08:45)
[2020-02-21 08:46] VITALS: BP 146/82
--- NOTE | 2020-02-21 15:30 | NUR ---
ANIMAL EVISCERATOR NOTES Obtained consent for "hemodialysis catheter insertion" and "hemodialysis" at this time. Explained risks and benefits to Patient. Patient verbalized understanding. Consent placed in chart.
[2020-02-21 16:00] VITALS: BP 145/62
--- NOTE | 2020-02-21 17:36 | NUR ---
WICKER WORKER NOTES Per Eduardo HUBBARD, ARVIND abarca for dialysis.
--- NOTE | 2020-02-21 17:58 | NUR ---
PRACTICAL NURSING TEACHER NOTES BS - 136. Patient refused 2units regular insulin at this time. Explained risks and benefits of medications. Patient still refused. Patient in stable condition. Will continue to monitor.
--- NOTE | 2020-02-21 18:36 | NUR ---
TANK FILLER NOTES Josette RN, dialysis nurse, unable to dialyze Patient at this time d/t complaints of pain, unable to flush cath, nor obtain blood return. Hemodialysis stopped. Camacho HUBBARD notified.
--- NOTE | 2020-02-21 19:16 | NUR ---
ASSOCIATE SOFTWARE APPLICATION ENGINEER CLOSING NOTES Patient resting in bed. A/O x 4, German speaking. VS stable with no acute distress. Breathing even and unlabored on room air with no respiratory distress. Denies pain. No signs and symptoms of pain. Telemonitor in place and patent reading SR with HR-86. LUCW Permacath in place. 20g PIV on LAC intact, patent and flushing well. Safety precautions in place. Bed locked and set to lowest position with side rails x 2 up. All needs rendered at this time. Call light within reach. Will endorse plan of care to oncoming shift.
--- NOTE | 2020-02-21 19:30 | NUR ---
TELE/RN OPENING NOTES RECEIVED PATIENT SLEEPING IN BED. PATIENT IS ALERT AND ORIENTED X 4. PATIENT TELE READING SR 89. PATIENT IS ON ROOM AIR TOLERATING WELL. NO SIGNS OF SOB OR RESPIRATORY DISTRESS NOTED. PATIENT HAS 20 G LAC SL INTACT AND LUCW PERMA CATH IN PLACE NO SIGNS OF ACTIVE BLEEDING. PATIENT IS IN NO SIGNS OF DISTRESS. SAFETY MEASURES ARE IN PLACE, BED IS LOCKED AND PLACED IN THE LOW POSITION, SIDE RAILS UP X 3. CALL LIGHT IS WITHIN REACH. WILL CONTINUE TO MONITOR THROUGH OUT SHIFT.
[2020-02-21 20:00] VITALS: BP 122/63
[2020-02-21 20:26] VITALS: BP 122/63
[2020-02-21] MEDS: ATORVASTATIN 10 MG TABLET PO SCH (21:27)
[2020-02-21] MEDS: HYDROCODONE/APAP 5/325MG TABLET PO PRN (21:33)
--- NOTE | 2020-02-21 21:35 | NUR ---
TELE/RN NOTES PATIENT COMPLAINING OF PAIN ON RIGHT AND LEFT CHEST, SHOULDER AREA. NORCO 5-325 MG WAS GIVEN PO. V/S ARE WITHIN NORMAL LIMITS. WILL CONTINUE TO MONITOR.
[2020-02-22] VITALS: BP 131/67
[2020-02-22] MEDS: HYDROCODONE/APAP 5/325MG TABLET PO PRN ×2 (01:43→08:33)
[2020-02-22 04:11] VITALS: BP 131/67
--- NOTE | 2020-02-22 06:30 | NUR ---
TELE/RN CLOSING NOTES PATIENT SLEEPING IN BED. PATIENT IS ALERT AND ORIENTED X 4. PATIENT TELE READING SR 73HR. PATIENT IS ON ROOM AIR TOLERATING WELL. NO SIGNS OF SOB OR RESPIRATORY DISTRESS NOTED. PATIENT HAS 20 G LAC SL INTACT AND LUCW PERMA CATH IN PLACE NO SIGNS OF ACTIVE BLEEDING. PATIENT IS IN NO SIGNS OF DISTRESS. SAFETY MEASURES ARE IN PLACE, BED IS LOCKED AND PLACED IN THE LOW POSITION, SIDE RAILS UP X 3. CALL LIGHT IS WITHIN REACH. WILL ENDORSE CARE TO DAY SHIFT.
--- NOTE | 2020-02-22 07:30 | NUR ---
TRAVEL FREIGHT AND PASSENGER AGENT OPENING NOTES RECEIVED PATIENT SLEEPING IN BED. PATIENT IS ALERT AND ORIENTED X 4. NO CARDIAC OR RESPIRATORY RESPIRATORY DISTRESS NOTED. NO SOB NOTED. SATURATING WELL ON ROOM AIR. ON CARDIAC TELE MONITORING SHOWING NSR 89. IV ACCESS NOTED ON 20 G LAC SL INTACT AND PATENT FLUSHING WELL. DIALYSIS ACCESS SITE NOTED ON LUCW PERMA CATH, PER CREDIT RATING CHECKER NURSE, THIS DIALYSIS SITE IS NOT CURRENTLY WORKING, PER REPORT DR. WEINSTEIN AND DR. SHANNON WAS NOTIFIED, NO S/S OF BLEEDING NOTED. SAFETY MEASURES ARE IN PLACE, BED IS LOCKED AND PLACED IN THE LOW POSITION, SIDE RAILS UP X 3. CALL LIGHT IS WITHIN REACH. WILL CONTINUE TO MONITOR THROUGH OUT SHIFT.
[2020-02-22] MEDS: BLOOD SUGAR DIAGNOSTIC 1 EACH STRIP IN SCH ×4 (07:32→22:10)
[2020-02-22 08:00] VITALS: BP 131/71
[2020-02-22] MEDS: BENAZEPRIL HCL 20 MG TABLET PO SCH (08:32)
[2020-02-22] MEDS: AMLODIPINE BESYLATE 5 MG TABLET PO SCH (08:32)
--- NOTE | 2020-02-22 09:30 | NUR ---
MONA WONG [facility] MADE AWARE OF PTS NON WORKING PERMACAT. ALSO CALLED DR. PELLETIER'S PHONE, HOWEVER IT WAS DR. REECE WHO ANSWERED BECAUSE HE IS DEVELOPING MACHINE OPERATOR. I READ THE CXRAY RESULTS THAT WAS DONE YESTERDAY TO DR. REECE, PER DR. REECE, ASK DIALYSIS NURSE AGAIN TO ATTEMPT DIALYSIS AGAIN TODAY AND TO TRY DRAWING BLOOD AND FLUSHING. DIALYSIS NURSE NOTIFIED.
[2020-02-22 10:40] LABS: CALCIUM, SERUM 7.6 mg/dL (8.5-10.1); CREATININE 4.7 mg/dL (0.6-1.3); POTASSIUM 4.9 mmol/L (3.5-5.1)
--- NOTE | 2020-02-22 10:45 | NUR ---
MONA SMITH EMBEDDED SOFTWARE PROGRAMMER CURRENTLY ON THE FLOOR, ENDORSED PTS CURRENT SITUATION WITH MONA.
--- NOTE | 2020-02-22 11:30 | NUR ---
HEMODIALYSIS DIALYSIS CATH NOW WORKING, WAS ABLE TO BE FLUSHED WITH GOOD BLOOD RETURN. DIALYSIS STARTED BY LUIS TUBE DISPATCHER.
--- NOTE | 2020-02-22 12:10 | NUR ---
MONA CALLED DR. TEJADA AND INFORMED MD THAT DIALYSIS NURSE WAS ABLE TO START DIALYSIS ON THE L UPPER CHEST PERMACATH. MARVIN ROBLEDO AND NURSING SUP MADE AWARE WELL.
--- NOTE | 2020-02-22 14:30 | NUR ---
HEMODIALYSIS S/P HEMODIALYSIS. 1.5L TAKEN OUT.
[2020-02-22 16:00] VITALS: BP 133/63
--- NOTE | 2020-02-22 18:50 | NUR ---
RN CLOSING NOTES PATIENT SLEEPING IN BED. PATIENT IS ALERT AND ORIENTED X 4. NO CARDIAC OR RESPIRATORY RESPIRATORY DISTRESS NOTED. NO SOB NOTED. SATURATING WELL ON ROOM AIR. ON CARDIAC TELE MONITORING SHOWING NSR 89. IV ACCESS NOTED ON 20 G LAC SL INTACT AND PATENT FLUSHING WELL. DIALYSIS ACCESS SITE NOTED ON LUCW PERMA CATH, DIALYSIS CATHETER IS NOW WORKING AND PT WAS DIALYZED TODAY WITH 1.5L TAKEN OUT NO S/S OF BLEEDING NOTED. KEPT PT CLEAN AND DRY. SAFETY MEASURES ARE IN PLACE, BED IS LOCKED AND PLACED IN THE LOW POSITION, SIDE RAILS UP X 3. CALL LIGHT IS WITHIN REACH. WILL ENDORSE TO NEXT SHIFT.
--- NOTE | 2020-02-22 19:45 | NUR ---
MS/RN CLOSING NOTES RECEIVED PATIENT RESTING IN BED. PATIENT IS ALERT AND ORIENTED X 4. PATIENT IS ON ROOM AIR TOLERATING WELL. NO SIGNS OF SOB OR RESPIRATORY DISTRESS NOTED. PATIENT HAS 20 G LAC SL INTACT AND LUCW PERMA CATH IN PLACE NO SIGNS OF ACTIVE BLEEDING. PATIENT RECEIVED HD TODAY OUTPUT 1.5L, TOLERATED WELL, LEFT PERMA CATH WORKING. PATIENT IS IN NO SIGNS OF DISTRESS. SAFETY MEASURES ARE IN PLACE, BED IS LOCKED AND PLACED IN THE LOW POSITION, SIDE RAILS UP X 3. CALL LIGHT IS WITHIN REACH. WILL CONTINUE TO MONITOR.
[2020-02-22 20:00] VITALS: BP 158/90
[2020-02-22 20:17] VITALS: BP 158/90
[2020-02-22] MEDS: ATORVASTATIN 10 MG TABLET PO SCH (22:01)
--- NOTE | 2020-02-23 06:35 | NUR ---
MS/RN CLOSING NOTES PATIENT RESTING IN BED. PATIENT IS ALERT AND ORIENTED X 4. PATIENT IS ON ROOM AIR TOLERATING WELL. NO SIGNS OF SOB OR RESPIRATORY DISTRESS NOTED. PATIENT HAS 20 G LAC SL INTACT AND LUCW PERMA CATH IN PLACE NO SIGNS OF ACTIVE BLEEDING. PATIENT RECEIVED HD ON 02/22/20 OUTPUT 1.5L, TOLERATED WELL. PATIENT IS IN NO SIGNS OF DISTRESS. ALL OF THE PATIENTS NEEDS HAVE BEEN MET DURING SHIFT. SAFETY MEASURES ARE IN PLACE, BED IS LOCKED AND PLACED IN THE LOW POSITION, SIDE RAILS UP X 3. CALL LIGHT IS WITHIN REACH. WILL ENDORSE CARE TO DAY SHIFT.
[2020-02-23] MEDS: BLOOD SUGAR DIAGNOSTIC 1 EACH STRIP IN SCH ×4 (06:57→21:46)
[2020-02-23 07:05] LABS: BASOPHILS # (AUTO) 0.1 /CMM (0.0-0.2); BASOPHILS % (AUTO) 1.1 % (0.0-2.0); EOSINOPHILS % (AUTO) 2.4 % (0.0-6.0); HEMATOCRIT 37 % (39-51); HEMOGLOBIN 11.7 g/dL (13.5-17.5); LYMPHOCYTES # (AUTO) 2.1 /CMM (0.8-4.8); LYMPHOCYTES % (AUTO) 26.7 % (20.0-44.0); MEAN CORPUSCULAR HGB CONC 32 g/dl (31.0-36.0); MEAN CORPUSCULAR VOLUME 89 fL (80-96); MONOCYTES # (AUTO) 0.8 /CMM (0.1-1.30); NEUTROPHILS # (AUTO) 4.8 /CMM (1.8-8.9); NEUTROPHILS % (AUTO) 59.8 % (43.0-81.0); PLATELET COUNT (AUTO) 336 /CMM (150-450); RED BLOOD CELL COUNT(AUTO) 4.15 MIL/uL (4.5-6.0)
--- NOTE | 2020-02-23 07:18 | NUR ---
RN NOTES RECEIVED PATIENT IN BED RESTING COMFORTABLY IN MODERATE HIGH BACK REST. A/O X 4. ON ROOM AIR TOLERATING WELL. NO SIGNS OF DISTRESS NOTED AT THIS TIME. IV ACCESS ON #20, LAC SL INTACT AND LUCW PERMA CATH IN PLACE NO SIGNS OF ACTIVE BLEEDING. NO SIGNS OF DISTRESS NOTED AT THIS TIME. SAFETY MEASURES ARE IN PLACE, BED IS LOCKED AND PLACED IN THE LOW POSITION, SIDE RAILS UP X 3. CALL LIGHT IS WITHIN REACH. WILL CONTINUE TO MONITOR.
[2020-02-23 07:38] LABS: CALCIUM, SERUM 8.6 mg/dL (8.5-10.1); CREATININE 3.8 mg/dL (0.6-1.3); PHOSPHORUS 4.3 mg/dL (2.5-4.9); POTASSIUM 4.7 mmol/L (3.5-5.1)
[2020-02-23 08:00] VITALS: BP 129/69
[2020-02-23] MEDS: AMLODIPINE BESYLATE 5 MG TABLET PO SCH (08:43)
[2020-02-23] MEDS: BENAZEPRIL HCL 20 MG TABLET PO SCH (08:43)
--- NOTE | 2020-02-23 10:00 | NUR ---
RN NOTES DIALYSIS NURSE ON UNIT, PATIENT WILL BE DIALYZE, NO SIGNS OF DISTRESS. WILL CONTINUE TO MONITOR.
--- NOTE | 2020-02-23 12:45 | NUR ---
RN NOTES S/P HD, NO OUTPUT, NO SIGNS OF DISTRESS, STABLE, WILL CONTINUE TO MONITOR.
[2020-02-23 16:00] VITALS: BP 132/69
--- NOTE | 2020-02-23 18:34 | NUR ---
RN NOTES PATIENT IN BED RESTING COMFORTABLY IN MODERATE HIGH BACK REST. A/O X 4. ON ROOM AIR TOLERATING WELL. NO SIGNS OF DISTRESS NOTED THROUGHOUT THE SHIFT, S/P HD WITH NO OUTPUT. IV ACCESS ON #20, LAC SL INTACT. SAFETY MEASURES ARE IN PLACE, BED IS LOCKED AND PLACED IN THE LOW POSITION, SIDE RAILS UP X 3. CALL LIGHT IS WITHIN REACH. WILL ENDORSE TO DOUPER NURSE FOR AMARIS.
--- NOTE | 2020-02-23 19:30 | NUR ---
MS/RN OPENING NOTES PATIENT RESTING IN BED. PATIENT IS ALERT AND ORIENTED X 4. PATIENT IS ON ROOM AIR TOLERATING WELL. NO SIGNS OF SOB OR RESPIRATORY DISTRESS NOTED. PATIENT HAS 20 G LAC SL INTACT. PATIENT IS IN NO SIGNS OF DISTRESS. SAFETY MEASURES ARE IN PLACE, BED IS LOCKED AND PLACED IN THE LOW POSITION, SIDE RAILS UP X 3. CALL LIGHT IS WITHIN REACH. WILL CONTINUE TO MONITOR THROUGH OUT SHIFT.
[2020-02-23 20:00] VITALS: BP 134/79
[2020-02-23 20:41] VITALS: BP 134/79
[2020-02-23] MEDS: ATORVASTATIN 10 MG TABLET PO SCH (21:32)
[2020-02-24] MEDS: BLOOD SUGAR DIAGNOSTIC 1 EACH STRIP IN SCH ×4 (06:24→21:50)
--- NOTE | 2020-02-24 06:30 | NUR ---
MS/RN CLOSING NOTES PATIENT SLEEPING IN BED. PATIENT IS ALERT AND ORIENTED X 4. PATIENT IS ON ROOM AIR TOLERATING WELL. NO SIGNS OF SOB OR RESPIRATORY DISTRESS NOTED. PATIENT HAS 20 G LAC SL INTACT. PATIENT IS IN NO SIGNS OF DISTRESS.LEFT SUBCLAVIAN VEIN TEMPORARY IN PLACE FOR HD, DRESSING INTACT, NO ACTIVE BLEEDING. ALL PATIENTS NEEDS HAVE BEEN MET. SAFETY MEASURES ARE IN PLACE, BED IS LOCKED AND PLACED IN THE LOW POSITION, SIDE RAILS UP X 3. CALL LIGHT IS WITHIN REACH. WILL ENDORSE CARE TO DAY TIME NURSE.
--- NOTE | 2020-02-24 07:35 | NUR ---
ms rn received on bed, awake,alert,oriented x4,not in any form of distress, respirations even and unlabored,no sob noted, lungs are diminish, abdomen soft, positive bowel sounds,denies pain at this time,all needs attended.
[2020-02-24 07:42] LABS: BASOPHILS # (AUTO) 0.1 /CMM (0.0-0.2); BASOPHILS % (AUTO) 1.1 % (0.0-2.0); EOSINOPHILS % (AUTO) 2.7 % (0.0-6.0); HEMATOCRIT 37 % (39-51); HEMOGLOBIN 11.5 g/dL (13.5-17.5); LYMPHOCYTES # (AUTO) 1.9 /CMM (0.8-4.8); LYMPHOCYTES % (AUTO) 23.7 % (20.0-44.0); MEAN CORPUSCULAR HGB CONC 32 g/dl (31.0-36.0); MEAN CORPUSCULAR VOLUME 90 fL (80-96); MONOCYTES # (AUTO) 0.8 /CMM (0.1-1.30); MONOCYTES % (AUTO) 10.5 % (2.0-12.0); NEUTROPHILS # (AUTO) 4.9 /CMM (1.8-8.9); PLATELET COUNT (AUTO) 305 /CMM (150-450); RED BLOOD CELL COUNT(AUTO) 4.08 MIL/uL (4.5-6.0); WHITE BLOOD COUNT (AUTO) 7.9 K/uL (4.3-11.0)
[2020-02-24 08:00] VITALS: BP 132/63
[2020-02-24 09:03] LABS: CREATININE 3.7 mg/dL (0.6-1.3); PHOSPHORUS 4.3 mg/dL (2.5-4.9); POTASSIUM 4.6 mmol/L (3.5-5.1)
[2020-02-24] MEDS: AMLODIPINE BESYLATE 5 MG TABLET PO SCH (09:07)
[2020-02-24] MEDS: BENAZEPRIL HCL 20 MG TABLET PO SCH (09:08)
--- NOTE | 2020-02-24 09:40 | NUR ---
ms gar breakfast served,due meds given,tolerated well.
--- NOTE | 2020-02-24 12:00 | NUR ---
ms gar bs -97- no coverage given.
--- NOTE | 2020-02-24 14:56 | NUR ---
isabel was seen by dr. weems w/ orders made and carried out.
[2020-02-24 16:00] VITALS: BP 145/69
--- NOTE | 2020-02-24 18:20 | NUR ---
MS RN ON BED,ALL NEEDS ATTENDED, NO DISTRESS NOTED.
--- NOTE | 2020-02-24 18:25 | NUR ---
ms rn bs - 159- patient refused coverage because according to him he just ate fruit at this time.
--- NOTE | 2020-02-24 19:15 | NUR ---
MS/RN OPENING NOTES REPORT RECIEVED FROM LUIS WHITFIELD. PATIENT IN BED. PATIENT IS ALERT AND ORIENTED X 4 GERMAN SPEAKING ONLY TRANSLATION ASSISTED BY BEATRIZ BLANCHARD. PATIENT IS ON ROOM AIR TOLERATING WELL. NO SIGNS OF SOB OR RESPIRATORY DISTRESS RESP EVEN AND UNLABORED. PATIENT HAS 20 G LAC SL INTACT. PATIENT IS IN NO SIGNS OF DISTRESS. SAFETY MEASURES ARE IN PLACE, BED IS LOCKED AND PLACED IN THE LOW POSITION, SIDE RAILS UP X 2. CALL LIGHT IS WITHIN REACH. LEFT SUBCLAVIAN VICKIE CATH IN PLACE WITH DRESSING INTACT. PLAN IS FOR PATIENT TO HAVE PERMA CATH PLACED PER PATIENT ATYIA IS TO COME SEE PATIENT TOMORROW FOR CONSULT.
[2020-02-24 20:00] VITALS: BP 139/83
[2020-02-24] MEDS: INSULIN REGULAR, HUMAN 100 UNIT/ML 3 ML VIAL SQ PRN (21:50)
[2020-02-24] MEDS: ATORVASTATIN 10 MG TABLET PO SCH (21:50)
[2020-02-25 07:26] LABS: BASOPHILS # (AUTO) 0.1 /CMM (0.0-0.2); EOSINOPHILS % (AUTO) 3.6 % (0.0-6.0); HEMATOCRIT 38 % (39-51); HEMOGLOBIN 11.9 g/dL (13.5-17.5); LYMPHOCYTES # (AUTO) 1.8 /CMM (0.8-4.8); LYMPHOCYTES % (AUTO) 24.1 % (20.0-44.0); MEAN CORPUSCULAR HGB CONC 32 g/dl (31.0-36.0); MEAN CORPUSCULAR VOLUME 90 fL (80-96); MONOCYTES # (AUTO) 0.7 /CMM (0.1-1.30); NEUTROPHILS # (AUTO) 4.6 /CMM (1.8-8.9); NEUTROPHILS % (AUTO) 61.3 % (43.0-81.0); PLATELET COUNT (AUTO) 324 /CMM (150-450); RED BLOOD CELL COUNT(AUTO) 4.21 MIL/uL (4.5-6.0); WHITE BLOOD COUNT (AUTO) 7.5 K/uL (4.3-11.0)
[2020-02-25] MEDS: BLOOD SUGAR DIAGNOSTIC 1 EACH STRIP IN SCH ×4 (07:30→22:14)
--- NOTE | 2020-02-25 07:33 | NUR ---
ms rn received on bed, awake,alert,oriented x4,not in any form of distress, respiratins even and unlabored,denies pain at this time,all needs attended.
[2020-02-25 07:38] LABS: CALCIUM, SERUM 8.3 mg/dL (8.5-10.1); CREATININE 3.7 mg/dL (0.6-1.3); POTASSIUM 4.4 mmol/L (3.5-5.1)
[2020-02-25 08:00] VITALS: BP 151/89
[2020-02-25] MEDS: AMLODIPINE BESYLATE 5 MG TABLET PO SCH (08:36)
[2020-02-25] MEDS: BENAZEPRIL HCL 20 MG TABLET PO SCH (08:36)
--- NOTE | 2020-02-25 08:45 | NUR ---
ms gar was seen by dr. emily reza/ order to go home today. Addendum: 02/25/20 at 1612 by LUIS VELEZ RN wrong entry.
--- NOTE | 2020-02-25 09:00 | NUR ---
ms gar breakfast served,due meds given,tolerated well.
--- NOTE | 2020-02-25 11:30 | NUR ---
ms rn hd was done,tolerated well w/ stable vitals and w/ 1 liter out.
--- NOTE | 2020-02-25 12:00 | NUR ---
ms nr patient refused to check blood sugar,all needs attended.
--- NOTE | 2020-02-25 18:00 | NUR ---
ms rn bs - 109-no coverage given,all needs attended.
[2020-02-25 20:00] VITALS: BP 163/80
--- NOTE | 2020-02-25 21:00 | NUR ---
DR. AREVALO CALLED. GAVE NEW ORDERS FOR CONSENT FOR PERMACATH PLACEMENT. PROCEDURE SCHEDULED FOR TOMORROW AT 730 AM.
--- NOTE | 2020-02-25 21:29 | NUR ---
spoke with patient; informed of procedure of permacath placement tomorrow with dr. carlson. translation [facility] assisted with laura gar questions concerns about procedure and covid discussed. patient wishes to speak to family before signing consents.
[2020-02-25] MEDS: ATORVASTATIN 10 MG TABLET PO SCH (22:13)
--- NOTE | 2020-02-25 22:29 | NUR ---
dr. natarajan anesthesiologist called wanted to confirm bmp was ordered for am and lab results be available by 0630. confirmed bmp ordered. tomorrow blood draw changed to earlier time of 0400 am.
--- NOTE | 2020-02-26 | NUR ---
PATIENT HAS DECIDED HE DOES NOT WANT THE PROCEDURE TO BE PERFORMED TOMORROW. PATIENT STATES. "ANAIS ANN JUST HAD A BABY. I WANT TO TLEAVE TOMORROW. I DON'T NEED PROCEDURE I HAVE NEW CATHETER, I WILL USE THIS IN MEAN TIME." PT ASKED TO BE NPO JUST IN CASE HE CHANGES HIS MIND ABOUT HAVING THE PROCEDURE. VERBALIZED UNDERSTANDING
--- NOTE | 2020-02-26 04:00 | NUR ---
Mars from lab here to draw blood. speaks surinamese. states patient refusing am blood draw. discussed blood draw with patient and informed that if he wanted to change his mind that the blood draw needed to happen before the procedure could be started. pt states in surinamese per mars metallurgical lab technician, "I have had to much blood drawn since i been here, they will draw my blood tomorrow. I am not going to have any procedures done today so it is not necessary."
--- NOTE | 2020-02-26 05:58 | NUR ---
[facility] OFFICE LEFT MESSAGE PATIENT REFUSING PERMACATH INSERTION. dr. smith's office called spoke with the physician oncfranck and informed that patient was refusing permacath insertion procedure today. stated he would forward the message to dr. smith.
--- NOTE | 2020-02-26 06:15 | NUR ---
DR. AREVALO CALLED BACK. PT STILL REFUSING PROCEDURE; PROCEDURE CANCELLED; OR CALLED IGGY INFORMED OF CANCELLATION. DR. AREVALO CALLED STATED HE WANTED US TO REITERATE TO PATIENT THAT HE STAYED AT HOSPITAL 2 EXTRA DAYS TO HAVE PERMACATH PLACED AND THAT HE MOST LIKELY WILL GET DISCHARGED AFTER THE PROCEDURES PERFORMED IT IS OUTPATIENT PROCEDURE. PATIENT INFORMED OF THIS INFORMATION WITH NELL WHITFIELD IN [place]. PT STILL REFUSING PROCEDURE. DR. AREVALO INFORMED STATES HE WILL CANCEL PROCEDURE. OR CALLED SPOKE WITH IGGY, INFORMED OF CANCELLATION OF PROCEDURE
--- NOTE | 2020-02-26 06:30 | NUR ---
RN PM CLOSING NOTE. PT SEEN RESTING IN BED WITH EYES CLOSED. IN NO APPAREN DISTRESS. BED DOWN LOCKED SRX3 SCHEDULED PROCEDURE HAS BEEN CANCELLED TODAY PATIENT REFUSED INSERTION OF PERMACATH. WILL ENDORSE TO ONCOMING SHIFT.
[2020-02-26] MEDS: BLOOD SUGAR DIAGNOSTIC 1 EACH STRIP IN SCH ×2 (06:48→11:35)
--- NOTE | 2020-02-26 07:31 | NUR ---
MS RN NOTES PATIENT RECEIVED IN BED SLEEPING, AWAKEN BY NAME AND LIGHT TOUCH. ALERT AND ORIENTED X 4, MAINLY IRAQI SPEAKING. PATIENT ON ROOM AIR WITH NO SIGNS OF RESPIRATORY DISTRESS, WITH EVEN NON-LABORED BREATHING, AND NO SOB NOTED. IV ACCESS INTACT AND PATENT. SKIN WARM AND DRY TO TOUCH. PATIENT PRESENTS WITH NO SIGNS OF PAIN OR DISCOMFORT AT THIS TIME. SAFETY PRECAUTIONS IMPLEMENTED WITH BED LOCKED, BED IN THE LOWEST POSITION, BILATERAL SIDE RAILS UP, AND CALL LIGHT WITHIN EASY REACH OF THE PATIENT. WILL CONTINUE TO MONITOR PATIENT.
[2020-02-26 07:55] VITALS: BP 103/66
[2020-02-26] MEDS: AMLODIPINE BESYLATE 5 MG TABLET PO SCH (08:41)
[2020-02-26] MEDS: BENAZEPRIL HCL 20 MG TABLET PO SCH (08:41)
[2020-02-26 08:44] VITALS: BP 138/61
--- NOTE | 2020-02-26 11:30 | NUR ---
SMELTER CHARGER NOTES: PATIENT SEEN AND EXAMINED BY HOSPITALIST AND ENVIRONMENTAL FIELD TECHNICIAN, EDUCATED THE PATIENT OF THE NEED TO STAY AND ENCOURAGING THE NEED OF THE PERMA CATH SURGERY. PATIENT KEPT REFUSING MULTIPLE TIMES, STATING HE DOES NOT WANT IT AND WANTS TO LEAVE TODAY. AT THIS WILL CONTINUE TO MONITOR PATIENT AND AWAIT FOR NEW ORDERS. Addendum: 02/26/20 at 1337 by HEMANTH GLASS RN MS RN NOTES: PATIENT SEEN AND EXAMINED BY HOSPITALIST AND ENVIRONMENTAL FIELD TECHNICIAN, EDUCATED THE PATIENT OF THE NEED TO STAY AND ENCOURAGING THE NEED OF THE PERMA CATH SURGERY. PATIENT KEPT REFUSING MULTIPLE TIMES, STATING HE DOES NOT WANT IT AND WANTS TO LEAVE TODAY. AT THIS WILL CONTINUE TO MONITOR PATIENT AND AWAIT FOR NEW ORDERS.
--- NOTE | 2020-02-26 11:35 | NUR ---
MS RN NOTES PATIENT'S BLOOD SUGAR 78, NO INSULIN NEEDED PER SLIDING SCALE PROTOCOL. LUNCH TRAY PROVIDED TO PATIENT, WILL CONTINUE TO MONITOR.
--- NOTE | 2020-02-26 13:20 | NUR ---
DUMPER BULK SYSTEM NOTES: PATIENT ALERT AND ORIENTED X 4, AUSTRALIAN SPEAKING, ON ROOM AIR WITH NO SIGNS OF RESPIRATORY DISTRESS, WITH EVEN NON-LABORED BREATHING, AND NO SOB NOTED. PATIENT VITAL SIGNS STABLE. PATIENT ACCOUNTED FOR ALL OF BELONGINGS. EDUCATED THE PATIENT THE NEED TO FOLLOW UP WITH SITE SURVEYOR DR. ERIC WORTHY AND TO FOLLOW UP WITH PRIMARY CARE PROVIDER. TAKE ALL MEDICATIONS PRESCRIBED. EXIT CARE PROVIDED. IV ACCESS REMOVED AND CATHETER TIP INTACT AND APPLIED PRESSURE TO SITE. PATIENT LEFT UNIT ACCOMPANIED BY STAFF, AND LEFT HOSPITAL IN A PRIVATE CAR.
== END 2020-02-26 13:29 | disposition home or self-care (01) | DRG 314 ==
LOC: ER 23:53 → MED 02-20 01:39 → TELE 02-20 19:00 → MED 02-22 08:57
PROVIDERS: ADMIT Hospitalist; ATTEND Nurse Practitioner Acute Care
PROC: 02HV33Z Insertion of Infusion Device into Superior Vena Cava, Percutaneous Approach (ICD-10-PCS; principal; 2020-02-21)
PROC: B548ZZA Ultrasonography of Superior Vena Cava, Guidance (ICD-10-PCS; 2020-02-21)
PROC: 5A1D70Z Performance of Urinary Filtration, Intermittent, Less than 6 Hours Per Day (ICD-10-PCS; 2020-02-22)
DX: T82.42XA Displacement of vascular dialysis catheter, initial encounter (principal); N18.6 End stage renal disease; I13.2 Hypertensive heart and chronic kidney disease with heart failure and with stage 5 chronic kidney disease, or end stage renal disease; E44.1 Mild protein-calorie malnutrition; I50.32 Chronic diastolic (congestive) heart failure; E11.22 Type 2 diabetes mellitus with diabetic chronic kidney disease; Z99.2 Dependence on renal dialysis; D63.1 Anemia in chronic kidney disease; E88.09 Other disorders of plasma-protein metabolism, not elsewhere classified; Z79.4 Long term (current) use of insulin; E87.5 Hyperkalemia; E66.9 Obesity, unspecified; Z79.82 Long term (current) use of aspirin; Z86.73 Personal history of transient ischemic attack (TIA), and cerebral infarction without residual deficits; Z68.35 Body mass index [BMI] 35.0-35.9, adult; N25.0 Renal osteodystrophy; Y83.8 Other surgical procedures as the cause of abnormal reaction of the patient, or of later complication, without mention of misadventure at the time of the procedure; Y92.009 Unspecified place in unspecified non-institutional (private) residence as the place of occurrence of the external cause
CPT/HCPCS: 36415; 71045-TC; 80048-TC; 80053-TC; 80061-TC; 80076-TC; 82962-TC; 83735-TC; 84100-TC; 84443-TC; 85025-TC; 87081-TC; 90935-TC; C9803-CS; G0378; J1815

== ENCOUNTER 2021-07-11 19:29 | Emergency (ER) | payer MEDICARE, OTHER ==
[~2021-07-11] VITALS: Ht 175.3 cm; Wt 99.8 kg
[~2021-07-11 19:29] MED LIST changes: +AMLO-212 PO; -AMLO5TAB9 PO; -HYDR-4384 PO; -INSU100V7 SQ; -IPRA3AMP23 IH; -MORP10SO PO
--- NOTE | 2021-07-11 19:49 | NUR ---
PT STEPHANIE FROM HOME C/O DIFFUSED ABDOMINAL PAIN SINCE THIS MORNING. PATIENT IS A DIALYSIS PATIENT, DOES TREATMENT MWF, BUT MISSED TODAY. PATIENT C/O NAUSEA. DENIES VOMITTING AND DIARRHEA. PATIENT ALERT AND ORIENTED X3. AMBULATORY WITH ASSISTANCE, DENIES ANY SOB.
--- NOTE | 2021-07-11 20:12 | NUR ---
PT BACK FROM CT
--- NOTE | 2021-07-11 21:07 | NUR ---
PT LAYING IN BED. VS STABLE
[2021-07-11] MEDS ORDERED: HYDR-4209 PO (21:34)
--- NOTE | 2021-07-11 22:13 | NUR ---
PT AWAITING FOR TRANSPORTATION. ETA [id number]
[2021-07-11] MEDS ORDERED: ACETAMINOPHEN 325 MG TABLET ONE (22:44)
[2021-07-11] MEDS ORDERED: ACETAMINOPHEN 325 MG TABLET PO ONE (23:00)
--- NOTE | 2021-07-11 23:23 | NUR ---
PT STILL WAITING FOR TRANSPORTATION. VS STABLE. NO PRESENT COMPLAINTS
--- NOTE | 2021-07-11 23:45 | NUR ---
Patient discharged to home in stable condition. Written and verbal after care instructions given. Patient verbalizes understanding of instruction.
[2021-07-12 01:08] VITALS: BP 140/80
== END 2021-07-11 23:45 | disposition home or self-care (01) ==
LOC: ER 19:30
DX: S32.018A Other fracture of first lumbar vertebra, initial encounter for closed fracture (principal); I12.0 Hypertensive chronic kidney disease with stage 5 chronic kidney disease or end stage renal disease; E11.22 Type 2 diabetes mellitus with diabetic chronic kidney disease; N18.6 End stage renal disease; D63.1 Anemia in chronic kidney disease; Z98.890 Other specified postprocedural states; Z88.8 Allergy status to other drugs, medicaments and biological substances; Z79.899 Other long term (current) drug therapy; Z79.4 Long term (current) use of insulin; Z79.82 Long term (current) use of aspirin; W19.XXXA Unspecified fall, initial encounter; Y93.89 Activity, other specified; Y92.89 Other specified places as the place of occurrence of the external cause; Y99.8 Other external cause status
CPT/HCPCS: 72131-TC

== ENCOUNTER 2024-11-18 12:43 | Inpatient (IN) | payer OTHER, MEDICAID ==
[~2024-11-18] VITALS: Ht 162.6 cm; Wt 75.3 kg
[~2024-11-18 12:43] MED LIST changes: +HYDR-4209 PO
[2024-11-18 13:30] LABS: CARBON DIOXIDE 26 mmol/L (21-32); CHLORIDE 96 mmol/L (98-107); GLUCOSE 96 mg/dL (74-106); POTASSIUM 5.4 mmol/L (3.5-5.1); SODIUM SERUM 132 mmol/L (136-145); UREA NITROGEN, BLOOD 56 mg/dL (7-18)
[2024-11-18] MEDS: CEFEPIME 1 GM in IV D5W 50 ML IV ONE (13:30)
[2024-11-18 13:34] LABS: CALCIUM, SERUM 8.9 mg/dL (8.5-10.1); CREATININE 5.7 mg/dL (0.6-1.3)
[2024-11-18 13:35] LABS: BASOPHILS # (AUTO) 0.2 K/uL (0.0-0.2); BASOPHILS % (AUTO) 0.8 % (0.0-2.0); EOSINOPHILS # (AUTO) 0.1 K/uL (0.0-0.7); EOSINOPHILS % (AUTO) 0.6 % (0.0-6.0); HEMATOCRIT 29 % (39-51); HEMOGLOBIN 8.8 g/dL (13.5-17.5); LYMPHOCYTES # (AUTO) 2.2 K/uL (0.8-4.8); MEAN CORPUSCULAR HEMOGLOBIN 26 PG (26.0-33.0); MEAN CORPUSCULAR HGB CONC 30 g/dl (31.0-36.0); MEAN CORPUSCULAR VOLUME 86 fL (80-96); MONOCYTES # (AUTO) 2.2 K/uL (0.1-1.30); MONOCYTES % (AUTO) 8.7 % (2.0-12.0); NEUTROPHILS # (AUTO) 20.1 K/uL (1.8-8.9); NEUTROPHILS % (AUTO) 80.9 % (43.0-81.0); PLATELET COUNT (AUTO) 436 K/uL (150-450); RED BLOOD CELL COUNT(AUTO) 3.38 MIL/uL (4.5-6.0); RED CELL DISTRIBUTION WIDTH 18.2 % (11.5-15.0); WHITE BLOOD COUNT (AUTO) 24.9 K/uL (4.3-11.0)
[2024-11-18 13:48] LABS: INR 1.06 (0.91-1.10); PARTIAL THROMBOPLASTIN TIME 31.3 SEC (24.3-34.3); PROTHROMBIN TIME 10.9 SECS (9.2-11.1)
[2024-11-18] MEDS: VANCOMYCIN 1 GM in IV D5W 250 ML IV ONE (14:00)
[2024-11-18] MEDS: IV NS 0.9% 500 ML BAG IV ONE (14:08)
[2024-11-18] MEDS ORDERED: GABA300C PO (14:11)
[2024-11-18] MEDS ORDERED: SENN-287 PO (14:11)
[2024-11-18] MEDS ORDERED: CARV3.122 PO (14:11)
[2024-11-18] MEDS ORDERED: ATOR20TA PO (14:11)
[2024-11-18] MEDS ORDERED: BENZ-38 PO (14:11)
[2024-11-18] MEDS ORDERED: SACU1TAB PO (14:11)
[2024-11-18] MEDS ORDERED: PANT40TA49 PO (14:11)
[2024-11-18 14:13] LABS: LACTIC ACID 2.4 mmol/L (0.4-2.0)
[2024-11-18 15:00] VITALS: O2SAT 98
[2024-11-18 16:26] LABS: BILIRUBIN,DIRECT 0.1 mg/dL (0.0-0.2); BILIRUBIN,TOTAL 0.4 mg/dL (0.2-1.0)
[2024-11-18 16:29] LABS: LACTIC ACID REFLEX 1.9 mmol/L (0.4-1.9)
[2024-11-18] MEDS ORDERED: ACETAMINOPHEN 325 MG TABLET PO PRN (17:00)
[2024-11-18] MEDS ORDERED: ONDANSETRON HCL/PF 4 MG/2 ML VIAL IVP PRN (17:00)
[2024-11-18] MEDS ORDERED: Z GUARD REMEDY 4 OZ OINT TP PRN (17:00)
[2024-11-18] MEDS: CARVEDILOL 3.125 MG TABLET PO SCH (17:05)
[2024-11-18] MEDS: SODIUM ZIRCONIUM CYCLOSILICATE 10 GM POWD.PACK PO ONE (17:05)
[2024-11-18] MEDS: PANTOPRAZOLE 40 MG TABLET.DR PO SCH (17:05)
[2024-11-18] MEDS: BENZONATATE 100 MG CAPSULE PO SCH (17:06)
[2024-11-18] MEDS ORDERED: DOCUSATE SODIUM 100 MG CAPSULE PO PRN (17:30)
[2024-11-18] MEDS ORDERED: SENNOSIDES 8.6 MG TABLET PO PRN (17:30)
[2024-11-18 18:00] VITALS: BP 124/60; TEMP 99.1; O2SAT 96
[2024-11-18 18:02] VITALS: BP 124/60; TEMP 98.4
[2024-11-18] MEDS: VANCOMYCIN 500 MG in IV D5W 100ml IV ONE (18:23)
[2024-11-18] MEDS ORDERED: DEXTROSE 50%-WATER 50 ML DISP.SYRIN IV PRN (20:00)
[2024-11-18 20:42] VITALS: BP 135/58; TEMP 97.9; O2SAT 92
[2024-11-18] MEDS: BLOOD SUGAR DIAGNOSTIC 1 EACH STRIP IN SCH (21:55)
[2024-11-18] MEDS: ATORVASTATIN 10 MG TABLET PO SCH (21:55)
[2024-11-18] MEDS: INSULIN REGULAR, HUMAN 100 UNIT/ML 3 ML VIAL SQ PRN (21:55)
[2024-11-18] MEDS: HEPARIN SODIUM, PORCINE 5000 UNITS/1 ML VIAL SQ SCH (22:01)
[2024-11-19 00:39] VITALS: BP 115/51; TEMP 97.7; O2SAT 94
[2024-11-19 04:44] VITALS: BP 138/59; TEMP 98.1; O2SAT 91
[2024-11-19] MEDS ORDERED: PANTOPRAZOLE 40 MG TABLET.DR PO SCH (07:30)
[2024-11-19 08:00] VITALS: BP 142/58; TEMP 97.9; O2SAT 93
[2024-11-19] MEDS: SACUBITRIL/VALSARTAN 24/26MG TABLET PO SCH (08:29)
[2024-11-19] MEDS: GABAPENTIN 300 MG CAPSULE PO SCH (08:29)
[2024-11-19] MEDS: ASPIRIN 81 MG TAB.CHEW PO SCH (08:30)
[2024-11-19] MEDS: CEFEPIME 1 GM in IV D5W 50 ML IV SCH (13:01)
[2024-11-19 16:00] VITALS: BP 146/61; TEMP 98.1; O2SAT 95
[2024-11-19 19:57] LABS: BASOPHILS # (AUTO) 0.2 K/uL (0.0-0.2); BASOPHILS % (AUTO) 1.1 % (0.0-2.0); EOSINOPHILS # (AUTO) 0.3 K/uL (0.0-0.7); EOSINOPHILS % (AUTO) 1.5 % (0.0-6.0); HEMATOCRIT 29 % (39-51); HEMOGLOBIN 8.9 g/dL (13.5-17.5); LYMPHOCYTES # (AUTO) 1.8 K/uL (0.8-4.8); LYMPHOCYTES % (AUTO) 9.2 % (20.0-44.0); MEAN CORPUSCULAR HEMOGLOBIN 26 PG (26.0-33.0); MEAN CORPUSCULAR HGB CONC 31 g/dl (31.0-36.0); MEAN CORPUSCULAR VOLUME 84 fL (80-96); MONOCYTES # (AUTO) 1.6 K/uL (0.1-1.30); MONOCYTES % (AUTO) 8.6 % (2.0-12.0); NEUTROPHILS # (AUTO) 15.2 K/uL (1.8-8.9); NEUTROPHILS % (AUTO) 79.6 % (43.0-81.0); PLATELET COUNT (AUTO) 463 K/uL (150-450); RED BLOOD CELL COUNT(AUTO) 3.47 MIL/uL (4.5-6.0); RED CELL DISTRIBUTION WIDTH 17.9 % (11.5-15.0); WHITE BLOOD COUNT (AUTO) 19.1 K/uL (4.3-11.0)
[2024-11-19 20:00] VITALS: BP 106/67; TEMP 97.7; O2SAT 98
[2024-11-19 20:07] LABS: CALCIUM, SERUM 8.6 mg/dL (8.5-10.1); CREATININE 4.6 mg/dL (0.6-1.3); MAGNESIUM 2.2 mg/dL (1.8-2.4); PHOSPHORUS 4.1 mg/dL (2.5-4.9); POTASSIUM 4.5 mmol/L (3.5-5.1)
[2024-11-19] MEDS: HYDROCODONE/APAP 5/325MG TABLET PO PRN (22:07)
[2024-11-20] VITALS: BP 112/53; TEMP 98.1; O2SAT 94
[2024-11-20 04:00] VITALS: BP 118/60; TEMP 98.3; O2SAT 93
[2024-11-20 07:00] VITALS: BP 121/57; TEMP 97.7; O2SAT 94
[2024-11-20 07:21] LABS: BASOPHILS # (AUTO) 0.2 K/uL (0.0-0.2); BASOPHILS % (AUTO) 0.8 % (0.0-2.0); EOSINOPHILS # (AUTO) 0.1 K/uL (0.0-0.7); EOSINOPHILS % (AUTO) 0.8 % (0.0-6.0); HEMATOCRIT 27 % (39-51); HEMOGLOBIN 8.3 g/dL (13.5-17.5); LYMPHOCYTES # (AUTO) 1.8 K/uL (0.8-4.8); LYMPHOCYTES % (AUTO) 9.9 % (20.0-44.0); MEAN CORPUSCULAR HEMOGLOBIN 26 PG (26.0-33.0); MEAN CORPUSCULAR HGB CONC 30 g/dl (31.0-36.0); MEAN CORPUSCULAR VOLUME 85 fL (80-96); MONOCYTES % (AUTO) 10.9 % (2.0-12.0); NEUTROPHILS % (AUTO) 77.6 % (43.0-81.0); PLATELET COUNT (AUTO) 395 K/uL (150-450); RED BLOOD CELL COUNT(AUTO) 3.22 MIL/uL (4.5-6.0); RED CELL DISTRIBUTION WIDTH 17.2 % (11.5-15.0)
[2024-11-20 08:19] LABS: CALCIUM, SERUM 8.6 mg/dL (8.5-10.1); CREATININE 4.8 mg/dL (0.6-1.3); MAGNESIUM 2.1 mg/dL (1.8-2.4); PHOSPHORUS 4.5 mg/dL (2.5-4.9); POTASSIUM 4.7 mmol/L (3.5-5.1)
[2024-11-20] MEDS ORDERED: DEXTROSE 50%-WATER 50 ML DISP.SYRIN IV PRN (13:00)
[2024-11-20] MEDS ORDERED: AMOX-427 PO (15:10)
[2024-11-20 16:00] VITALS: BP 118/55; TEMP 97.9; O2SAT 98
[2024-11-20 17:21] VITALS: BP 118/65
[2024-11-20] MEDS: BLOOD SUGAR DIAGNOSTIC 1 EACH STRIP IN SCH (17:51)
[2024-11-20] MEDS: INSULIN REGULAR, HUMAN 100 UNIT/ML 3 ML VIAL SQ PRN (17:52)
[2024-11-21 04:09] LABS: HEPATITIS B SURFACE AB (QUAL) Reactive (.)
== END 2024-11-20 18:39 | disposition home health service (06) | DRG 871 ==
LOC: ER 12:45 → TELE 15:22 → MED 11-20 12:12
PROVIDERS: ADMIT Nurse Practitioner Acute Care; ATTEND Nurse Practitioner Acute Care
PROC: 5A1D70Z Performance of Urinary Filtration, Intermittent, Less than 6 Hours Per Day (ICD-10-PCS; principal; 2024-11-19)
DX: A41.9 Sepsis, unspecified organism (principal); N18.6 End stage renal disease; I12.0 Hypertensive chronic kidney disease with stage 5 chronic kidney disease or end stage renal disease; E87.20 Acidosis, unspecified; E87.1 Hypo-osmolality and hyponatremia; Z99.2 Dependence on renal dialysis; Z20.822 Contact with and (suspected) exposure to COVID-19; Z86.73 Personal history of transient ischemic attack (TIA), and cerebral infarction without residual deficits; E11.22 Type 2 diabetes mellitus with diabetic chronic kidney disease; E78.5 Hyperlipidemia, unspecified; D63.8 Anemia in other chronic diseases classified elsewhere; Z89.422 Acquired absence of other left toe(s); Z87.09 Personal history of other diseases of the respiratory system; Z79.4 Long term (current) use of insulin; Z79.82 Long term (current) use of aspirin; Z79.899 Other long term (current) drug therapy; I25.10 Atherosclerotic heart disease of native coronary artery without angina pectoris; E87.5 Hyperkalemia; E87.70 Fluid overload, unspecified; Z88.8 Allergy status to other drugs, medicaments and biological substances; Z98.890 Other specified postprocedural states
CPT/HCPCS: 36415; 71045-TC; 80048-TC; 80061-TC; 80202-TC; 82247-TC; 82248-TC; 82962-TC; 83605-TC; 83735-TC; 84100-TC; 84484-TC; 85025-TC; 85730-TC; 86706; 87040-TC; 87340; 90935-TC; G0378; J0692; J1644; J1815; J3370; J7030; J7060